=== PATIENT | male | born 1995 | race African-American/Black ===

== ENCOUNTER 2020-02-12 21:48 | Emergency (ER) | payer MEDICAID ==
[~2020-02-12] VITALS: Ht 177.8 cm; Wt 83.9 kg
--- OUTSIDE RECORDS SUMMARY | ~2020-02-12 | XMS | Encounter Summary ---
Demographics + + + | Address | [address] | | | [place] [facility] [address] | + + + | Home Phone | | + + + | Preferred Language | Unknown | + + + | Marital Status | Single | + + + | Mandaeism Affiliation | 1013 | + + + | Race | Unknown | + + + | Ethnic Group | Unknown | + + + Author + + + | Author | [facility] | | | and [place] | + + + | Organization | [facility] | | | and [place] | + + + | Address | Unknown | + + + | Phone | Unavailable | + + + Support + + + + + | Name | Relationship | Address | Phone | + + + + + | Heidy Yao | ECON | [address] | | | | | [place] | | | | | [address] | | + + + + + Care Team Providers + +------+ + | Care Acute Care Physician Name | Role | Phone | + +------+ + | Ugo Schofield MD | PCP | | + +------+ + Reason for Visit Auth/Cert +--------+--------+ + + + + | Status | Reason | Specialty | Diagnoses / | Referred By | Referred To | | | | | Procedures | Contact | Contact | +--------+--------+ + + + + | | | | Diagnoses | | Harri, | | | | | | | Ashok Riley MD | | | | | Gastroesopha | | [address], | | | | | geal reflux | | [address] | | | | | disease, | | [place], | | | | | esophagitis | | [place] [address] | | | | | presence not | | Phone: | | | | | specified | | [phone] | | | | | Gastritis, | | Fax: | | | | | presence of | | [phone] | | | | | bleeding | | | | | | | unspecified, | | | | | | | unspecified | | | | | | | chronicity, | | | | | | | unspecified | | | | | | | gastritis | | | | | | | type | | | | | | | Cannabis | | | | | | | use, | | | | | | | uncomplicate | | | | | | | d | | | | | | | Procedures | | | | | | | [place] | | | | | | | ESOPHAGOGAST | | | | | | | RODUODENOSCO | | | | | | | PY TRANSORAL | | | | | | | DIAGNOSTIC | | | | | | | [place] EGD | | | | | | | TRANSORAL | | | | | | | BIOPSY | | | | | | | SINGLE/MULTI | | | | | | | PLE [place] | | | | | | | ANESTHESIA | | | | | | | UPPER GI | | | | | | | ENDOSCOPIC | | | | | | | PX NOS EGD | | | +--------+--------+ + + + + Encounter Details +--------+---------+ + + + | Date | Type | Department | Care Team | Description | +--------+---------+ + + + | 07/27/ | Surgery | [facility] | Ashok Estrada MD | EGD | | 2019 | | MED CTR [facility] INTRA OP | [address], [place] | | | | | [address] | [address] [place] | | | | | [place] | [address] | | | | | [address] | | | | | | [phone] | | | +--------+---------+ + + + Social History + +-------+ +--------+------+ | Tobacco Use | Types | Packs/Day | Years | Date | | | | | Used | | + +-------+ +--------+------+ | Never Smoker | | | | | + +-------+ +--------+------+ + +---+---+---+ | Smokeless Tobacco: | | | | | Never Used | | | | + +---+---+---+ + + +---------+ + | Alcohol Use | Drinks/Week | oz/Week | Comments | + + +---------+ + | Yes | 5 Cans of beer | 5.0 | | + + +---------+ + + + + | Sex Assigned at | Date Recorded | | | | + + + | Not on file | | + + + documented as of this encounter Last Filed Vital Signs + + + + + | Vital Sign | Reading | Time Taken | Comments | + + + + + | Blood Pressure | 135/92 | 07/27/2019 1:18 PM | | | | | PST | | + + + + + | Pulse | 63 | 07/27/2019 1:18 PM | | | | | PST | | + + + + + | Temperature | 36.6 C (97.9 F) | 07/27/2019 1:18 PM | | | | | PST | | + + + + + | Respiratory Rate | 18 | 07/27/2019 1:18 PM | | | | | PST | | + + + + + | Oxygen Saturation | 100% | 07/27/2019 1:18 PM | | | | | PST | | + + + + + | Inhaled Oxygen | - | - | | | Concentration | | | | + + + + + | Weight | 86.5 kg (190 lb 11.2 | 07/27/2019 1:18 PM | | | | oz) | PST | | + + + + + | Height | 175.3 cm (5' 9") | 07/27/2019 1:18 PM | | | | | PST | | + + + + + | Body Mass Index | 28.16 | 07/27/2019 1:18 PM | | | | | PST | | + + + + + documented in this encounter Discharge Instructions Instructions Priya Mcguire RN - 07/27/2019Formatting of this note might be different f rom the original. Hiatal Hernia The diaphragm is a thin sheet of muscle that runs across the top of the stomach. The small opening in the diaphragm where the esophagus and stomach meet is called the hiatus. When you eat, the muscle around the hiatus relaxes to let food pass from the esophagus into the stom ach. The hiatus tightens to keep food and acid in the stomach. In some people, the hiatus is too large or the muscle around it is weak. Then the top of th e stomach can push upward through the hiatus. This is called a hiatal hernia. A hiatal herni a can let stomach acid flow back up the esophagus. This is called acid reflux. Hiatal hernias are common. The cause of a hiatal hernia is not certain, but some things may make it more likely. These may include obesity, , and vomiting or coughing. Many people with hiatal hernia do not have symptoms. Often the symptoms are like those of G ERD or acid reflux. Theycan include: Burning feeling under the breastbone (heartburn) Other chest discomfort Frequent burping Food coming back up into the throat or mouth Acid taste in the mouth Trouble swallowing food or liquid Nighttime choking, coughing, or wheezing Feeling full after eating only a small amount of food Nausea and vomiting Treatment can reduce symptoms. This includes medicines and lifestyle changes. In severe serafin es, you may need surgery to tighten the hiatus. Home care Medicines help control symptoms, but they can't fix the hernia. Antacids help neutralize the normal acids in your stomach. You may find one works better than another for you. Acid blockers (H2 blockers) decrease acid production. Acid inhibitors (PPIs) decrease acid production in a different way than the blockers. Don't take NSAIDs such as aspirin, ibuprofen, and naproxen. These may worsen symptoms in some people. If you are taking these medicines for another medical problem, talk with your healthcare provider before stopping them. Lifestyle changes are important in treating your symptoms. You can help reduce or relieve y our symptoms if you: Stop smoking and using tobacco. Also if possible, avoid second-hand smoke. Lose excess weight. Excess weight puts pressure on the stomach and esophagus. Symptoms can be worsened by certain foods. Limit or avoid fatty, fried, and spicy foods, as well as coffee, chocolate, mint, and foods with high acid content such as tomatoes and c itrus fruit and juices (orange, grapefruit, lemon). Eat smaller amounts at a time. Don't get overfull. Don't use alcohol, caffeine, or tobacco. They can delay healing and worsen your symptoms . Follow-up care Follow up with your healthcare provider. Regular visits may be needed to check on your heal th. Be sure to take any medicines as prescribed and keep all your appointments. In some case s, you may need surgery to stop symptoms. Your healthcare provider will talk with you about this option if needed. When to seek medical advice Call your healthcare provider right away if any of these occur: Severe pain in your chest or abdomen Can t keep down food or liquid Symptoms get worse Other symptoms as indicated by your healthcare provider Call 911 Call 911 if any of these occur: Trouble breathing or swallowing Worsening chest pain, especially if different from usual Vomiting blood Large amounts of blood in stool Date Last Reviewed: 09/18/201719996580-7778 [employer] [address] [place] [address]. All righ ts reserved. This information is not intended as a substitute for professional medical care. Always follow your healthcare professional's instructions. Tips to Control Acid Reflux To control acid reflux, you ll need to make some basic diet and lifestyle changes. The si mple steps outlined below may be all you ll need to ease discomfort. Watch what you eat Avoid fatty foods and spicy foods. Eat fewer acidic foods, such as citrus and tomato-based foods. These can increase sympto ms. Limit drinking alcohol, caffeine, and fizzy beverages. All increase acid reflux. Try limiting chocolate, peppermint, and spearmint.These can worsen acid reflux in some people. Watch when you eat Avoid lying down rcm4ueute after eating. Do not snack before going to bed. Raise your head Raising your head and upper body by 4 to 6 incheshelps limit reflux when you re lying d own. Put blocks under the head of your bed frame to raise it. Other changes Lose weight, if you need to Don t exercise near bedtime Avoid tight-fitting clothes Limit aspirin and ibuprofen Stop smoking Date Last Reviewed: 02/16/201619994952-3059 [employer] [address] [place] [id number]. All righ ts reserved. This information is not intended as a substitute for professional medical care. Always follow your healthcare professional's instructions. documented in this encounter Medications at Time of Discharge + + + +---------+ + + | Medication | Sig | Dispensed | Refills | Start | End Date | | | | | | Date | | + + + +---------+ + + | omeprazole | One po bid | 180 | 1 | 05/20/20 | | | (PRILOSEC) 20 mg | | capsule | | 19 | | | capsuleIndications: | | | | | | | Gastroesophageal | | | | | | | reflux disease, | | | | | | | esophagitis presence | | | | | | | not specified, | | | | | | | Gastritis, presence | | | | | | | of bleeding | | | | | | | unspecified, | | | | | | | unspecified | | | | | | | chronicity, | | | | | | | unspecified | | | | | | | gastritis type | | | | | | + + + +---------+ + + | ondansetron | Take 1 tablet by | 10 | 0 | 05/03/20 | | | (ZOFRAN ODT) 4 mg | mouth every 8 hours | tablet | | 19 | | | disintegrating | as needed for | | | | | | tablet | Nausea. | | | | | + + + +---------+ + + | raNITIdine | Take 150 mg by mouth | | 0 | | | | (RANITIDINE 150 MAX | 2 times daily. | | | | | | STRENGTH) 150 mg | | | | | | | tablet | | | | | | + + + +---------+ + + documented as of this encounter H&P Notes Ashok Estrada MD - 07/27/2019 1:40 PM PSTThe patient has no questions consent form is si gned we will proceed with upper endoscopyElectronically signed by Ashok Estrada MD at 07/27 1:44 PM Ashok Rojas MD - 07/12/2019 9:11 AM PST PRE-ENDOSCOPY HISTORY AND PRE-SEDATION ASSESSMENT PATIENT NAME: Lit Munoz : 1995 TODAY'S DATE: 07/27/2019 PLANNED PROCEDURE: upper endoscopy PERTINENT HISTORY/INDICATION FOR PROCEDURE: Lit Munoz is a 23 y.o. male who is undergoing upper endoscopy for evaluation of abdominal pain vomiting, history of gastriti s. Patient is referred from the emergency room and primary care provider. Patient reports that he continues to have epigastric pain but is had no further episodes of melena PAST HISTORY: Past Medical History: Diagnosis Date Anxiety PAST SURGICAL HISTORY Past Surgical History: Procedure Laterality Date CYST REMOVAL HOME MEDS: Prior to Admission medications Medication Sig Taking? famotidine (PEPCID) 20 mg tablet Take 1 tablet by mouth Twice daily as needed. omeprazole (PRILOSEC) 20 mg capsule One po bid omeprazole (PRILOSEC) 20 mg capsule Take 1 capsule by mouth every morning (before breakfast ). ondansetron (ZOFRAN ODT) 4 mg disintegrating tablet Take 1 tablet by mouth every 8 hours as needed for Nausea. raNITIdine (RANITIDINE 150 MAX STRENGTH) 150 mg tablet Take 150 mg by mouth 2 times daily. ALLERGIES No Known Allergies ASA CLASSIFICATION: 2 EXAMINATION: Blood pressure (!) 135/92, pulse 63, temperature 36.6 C (97.9 F), resp. rate 18, height 1.753 m (5' 9"), weight 86.5 kg (190 lb 11.2 oz), SpO2 100 %. General: Alert and orientedx3 Throat: Normal Lungs: Clear Heart: Regular rate and rhythm with out significant murmur Abdomen: flat, normal bowel sounds. Soft, nontender 1. Available medical records have been reviewed. [facility] 05/20/2019 emergency r oom department 05/08/2019 2. Medication list reviewed. IMPRESSION: epigastric pain and melena rule out peptic ulcer disease as dryness etc. Pat ient appropriate for procedure. PLAN: 1. Proceed with procedure as stated above with propofol sedation/analgesia due to THC use, alcohol use and anxiety. 2. Procedure, indications, risks and alternatives explained to patient/family and they agre ed to proceed and consent was signed. 3. Patient will be reevaluated immediately (1-2 minutes) before sedation administration and approved for the plan as stated above. Electronically Signed by: Ashok Estrada MD 07/27/2019 [facility] Portions of this chart may have been created with [employer] voice recognition software. Occasi onal wrong-word or sound-alike substitutions may have occurred due to the inherent moyer itations of voice recognition software. Please read the chart carefully and recognize, using context, where these substitutions have occurred documented in this encounter Miscellaneous Notes Op Note - Ashok Estrada MD - 07/27/2019 2:07 PM PSTUpper endoscopy was remarkable for a small sliding hiatal hernia with an irregular Z line at 39 cm. Gastric cavity appeared norm al H. pylori biopsy was obtained. There appeared to be duodenum mucosal atrophy and as such duodenal biopsies were obtained. Distal esophageal biopsies were also obtained. Patient w ill continue on his current therapy pending biopsy results -C Instructions Provation - Ashok Estrada MD - 019 1:31 PM PSTDischarge Instructions for Upper Endoscopy Patient: Lit Munoz : 1995 Acct: [id number] Exam Date: Saturday, July 27, 2019 Doctor: Ashok Estrada MD The chances of difficulty following this procedure are minimal. The following instructions will assist you in your recovery. 1. Do Not eat or drink anything for 1 hour. Try sips of water first. If tolerated, resume your regular diet or one recommended by your physician. 2. Do not drive, operate machinery, make critical decisions, or do activities that require coordination or balance for 24 hours. 3. You may experience a sore throat for 24 - 48 hours. You may use throat lozenges or gargle with warm salt water to relieve the discomfort. 4. Because air was put into your stomach druing the procedure, you may experience some belching. 5. Do not use any medication containing aspirin for 10 days, unless otherwise directed by your physician. 6. Sometimes the medications given to you druing the exam can aggravate the veins. The chemical irritation can cause inflammation or pain along the arm with redness, swelling and warmth. This does not mean there is an infection. You can treat the affected area by applying warm, wet compresses (towels) 4 times a day for 20 minutes at a time until inflammation is resolved 7. Report to your doctor: Chills and/or fever over 100 Persistent vomiting or vomiting with blood/nasal regurgitation Severe abdominal pain, other than gas cramps Severe chest pain Black, tarry stools You may reach your physician at Work: . If unable to reach your physician, call [facility] Emergency Department at Ext. [phone] Your doctor recommends these additional instructions: You have a contact number available for emergencies. The signs and symptoms of potential delayed complications were discussed with you. You may return to normal activities tomorrow. Written discharge instructions were provided to you. You are being discharged to home. Resume your previous diet today. Continue your present medications. We are waiting for your pathology results. Return to your primary care physician as previously scheduled. Telephone your GI clinic if symptoms are present. Telephone your GI clinic for pathology results in one week. These instructions have been explained to the patient and/or escort. A copy has been given to the patient/escort. Nurse Signature Patient Signature Escort Signature Date Ashok Estrada MD 07/27/2019 2:12:49 PM This report has been signed electronically.Electronically signed by Ashok Estrada MD at 2:13 PM PSTdocumented in this encounter Plan of Treatment Not on filedocumented as of this encounter Procedures + +--------+ + + + | Procedure Name | Priori | Date/Time | Associated Diagnosis | Comments | | | ty | | | | + +--------+ + + + | HELICOBACTER PYLORI | Routin | 07/27/2019 | | Results for this | | BIOPSY | e | 1:51 PM | | procedure are in the | | | | PST | | results section. | + +--------+ + + + | EGD | | 07/27/2019 | Gastroesophageal | | | | | 1:43 PM | reflux disease, | | | | | PST | esophagitis presence | | | | | | not specified | | | | | | Gastritis, presence | | | | | | of bleeding | | | | | | unspecified, | | | | | | unspecified | | | | | | chronicity, | | | | | | unspecified | | | | | | gastritis type | | | | | | Cannabis use, | | | | | | uncomplicated | | + +--------+ + + + | *TERMED* [place] UPPER GI | Routin | 07/27/2019 | | Results for this | | ENDOSCOPY,EXAM | e | 1:31 PM | | procedure are in the | | | | PST | | results section. | + +--------+ + + + | SURGICAL PATHOLOGY | Routin | 07/27/2019 | | Results for this | | EXAM | e | 12:00 AM | | procedure are in the | | | | PST | | results section. | + +--------+ + + + documented in this encounter Results Helicobactor pylori Biopsy (07/27/2019 1:51 PM PST) + + + + + + | Component | Value | Ref Range | Performed | Pathologist | | | | | At | Signature | + + + + + + | Helicobacte | Negative | Negative | [facility] | | | r pylori Ag | | | [facility] | [facility] - | | | | | | LABORATORY | | + + + + + + + + | Specimen | + + | Tissue - Specimen | | from stomach | | (specimen) | + + + + + + + | Performing | Address | City/State/Zipcode | Phone Number | | Organization | | | | + + + + + | [facility] | [address] | [place] | [phone] | | [facility] | | [address] | | | - LABORATORY | | | | + + + + + EGD (07/27/2019 1:31 PM PST) + + | Specimen | + + | | + + + + + | Narrative | Performed At | + + + | [facility] | [facility] | | [facility]ologyPatient Name: Lit Munoz | YECENIA | | RichardProcedure Date: 07/27/2019 1:31 PMMRN: [id number] | | | Number: [id number] of : 1995Note Status: | | | FinalizedAttending MD: Asohk Estrada , [facility]rocedure Type: | | | Upper GI endoscopyIndications: Epigastric | | | abdominal pain, MelenaReferring MD: Ugo Vu | | | MD Chandu (Referring MD)Medicines: Propofol per | | | AnesthesiaComplications: No immediate complications. | | | Estimated blood loss: | | | Minimal.Procedure: Pre-Anesthesia Assessment: - Prior to | | | the procedure, a History and Physical was performed, and | | | patient medications, allergies and sensitivities were reviewed. The | | | patient's tolerance of previous anesthesia was reviewed. - | | | Prior to the procedure, a History and Physical was performed, and | | | patient medications and allergies were reviewed. The patient is | | | competent. The risks and benefits of the procedure and the | | | sedation options and risks were discussed with the patient. All | | | questions were answered and informed consent was obtained. | | | Patient identification and proposed procedure were verified by | | | the physician, the nurse, the anesthesiologist and the | | | data communications technician in the endoscopy suite. Mental Status Examination: | | | anxious. Airway Examination: normal oropharyngeal airway and | | | neck mobility and Mallampati Class II (the uvula but not | | | tonsillar pillars visualized). Respiratory Examination: clear to | | | auscultation. CV Examination: normal. Prophylactic Antibiotics: The | | | patient does not require prophylactic antibiotics. Prior | | | Anticoagulants: The patient has taken no previous anticoagulant | | | or antiplatelet agents. ASA Grade Assessment: II - A patient | | | with mild systemic disease. After reviewing the risks and | | | benefits, the patient was deemed in satisfactory condition to | | | undergo the procedure. The anesthesia plan was to use monitored | | | anesthesia care (MAC). Immediately prior to administration of | | | medications, the patient was re-assessed for adequacy to receive | | | sedatives. The heart rate, respiratory rate, oxygen saturations, | | | blood pressure, adequacy of pulmonary ventilation, and response | | | to care were monitored throughout the procedure. The physical | | | status of the patient was re-assessed after the procedure. | | | - After reviewing the risks and benefits, the patient was deemed in | | | satisfactory condition to undergo the procedure. - Using | | | IV propofol under the supervision of an anesthesiologist was | | | determined to be medically necessary for this procedure based on | | | patient's dependence on opiates, sedatives or hypnotics and | | | patient's anxiety. After obtaining informed consent, the | | | endoscope was passed under direct vision. Throughout the | | | procedure, the patient's blood pressure, pulse, and oxygen | | | saturations were monitored continuously. The Endoscope was | | | introduced through the mouth, and advanced to the third part of | | | duodenum. The upper GI endoscopy was accomplished without difficulty. | | | The patient tolerated the procedure well.Findings: The | | | cricopharyngeus, upper third of the esophagus, middle third of the | | | esophagus and lower third of the esophagus were normal. The | | | Z-line was irregular and was found 38 cm from the incisors. Imaging | | | was performed using the [employer]elligent [employer]o Endoscopy | | | (FICE) system to visualize the esophageal mucosa. Biopsies were | | | taken with a cold forceps for histology. Verification of | | | patient identification for the specimen was done. Estimated | | | blood loss was minimal. A 4 cm sliding hiatal hernia was found. | | | Localized mildly erythematous mucosa without bleeding was found | | | in the gastric antrum. Biopsies were taken with a cold forceps | | | for Helicobacter pylori testing using CLOtest. Verification of | | | patient identification for the specimen was done. Estimated | | | blood loss was minimal. Diffuse atrophic mucosa was found in the | | | area of the papilla and in the third portion of the duodenum. | | | The duodenal bulb and first portion of the duodenum were normal. | | | Biopsies for histology were taken with a cold forceps for | | | evaluation of celiac disease. Verification of patient | | | identification for the specimen was done. Estimated blood loss | | | was minimal. The retroflexed view confirmed previous | | | findings,Impression: - Normal cricopharyngeus, upper third of | | | esophagus, middle third of esophagus and lower third of | | | esophagus. - Z-line irregular, 38 cm from the incisors. | | | Biopsied. - 4 cm sliding hiatal hernia. - Erythematous | | | mucosa in the antrum. Biopsied. - Duodenal mucosal atrophy. | | | - Normal duodenal bulb and first portion of the duodenum. Biopsied. | | | - The retroflexed view confirmed previous | | | findings,Recommendation: - Patient has a contact number | | | available for emergencies. The signs and symptoms of potential | | | delayed complications were discussed with the patient. Return | | | to normal activities tomorrow. Written discharge instructions | | | were provided to the patient. - Discharge patient to home | | | (ambulatory). - Resume previous diet today. - Continue | | | present medications. - Await pathology results. - Return | | | to primary care physician as previously scheduled. - Telephone | | | GI clinic if symptomatic. - Telephone GI clinic for pathology | | | results in 1 week.Ashok Estrada MD07/27/2019 2:12:49 PMThis report | | | has been signed electronically.Note Initiated On: 07/27/2019 1:31 | | | PMNumber of Addenda: 0 [facility] | | | - Discharge patient to home (ambulatory). | | | - Resume previous diet today. | | | - Continue present medications. | | | - Await pathology results. | | | - Return to primary care physician as previously scheduled. | | | - Telephone GI clinic if symptomatic. | | | - Telephone GI clinic for pathology results in 1 week. | | |Ahsok Estrada MD | | |07/27/2019 2:12:49 PM | | |This report has been signed electronically. | | |Note Initiated On: 07/27/2019 1:31 PM | | |Number of Addenda: 0 | | | [facility] [facility] | | + + + + +---------+ + + | Performing | Address | City[facility] | Phone Number | | Organization | | | | + +---------+ + + | [facility] | | | | + +---------+ + + Surgical Pathology Exam (07/27/2019 12:00 AM PST) + + | Specimen | + + | | + + + + + | Narrative | Performed At | + + + | SPECIMEN(S): A DUODENAL BIOPSY SPECIMEN(S): B DISTAL ESOPHAGUS | [facility] | | SPECIMEN SOURCE: A. DUODENAL BIOPSY B. DISTAL ESOPHAGUS CLINICAL | [facility] | | HISTORY: K21.9 (gastroesophageal reflux disease, esophagitis | | | presence not specified), K29.70 (gastritis, unspecified), F12.90 | | | (Cannabis use, unspecified, uncomplicated) MICROSCOPIC | | | DESCRIPTION: Histologic sections of all submitted blocks are examined | | | by light microscopy. These findings, together with the gross | | | examination, support the pathologic diagnosis. FINAL PATHOLOGIC | | | DIAGNOSIS: A. Duodenal biopsy: - Benign duodenal mucosa, negative | | | for specific diagnostic abnormality. B. Distal esophagus, biopsy: | | | - Squamocolumnar junction with chronic inflammation and reactive | | | features. - Negative for specialized intestinal metaplasia. - | | | Negative for dysplasia. - Fragment of benign duodenal mucosa. | | | (see comment) COMMENT: B. A small fragment of benign duodenal | | | mucosa is identified which may represent a contaminant from specimen | | | A. VR:[facility]:C2NR GROSS DESCRIPTION: Two specimens are received | | | in two containers, labeled "DP." A. The specimen, labeled "DP, | | | duodenal biopsy," is received in formalin and consists of seven, | | | 0.2-0.3 cm larsen-brown tissue fragments. Specimen is entirely submitted | | | in cassette (A1). B. The specimen, labeled "DP, distal | | | esophageal biopsy," is received in formalin and consists of six, | | | 0.1-0.2 cm larsen-white tissue fragments. Specimen is entirely submitted | | | in cassette (B1). AM (under the direct supervision of a pathologist) | | | The Gross Description was prepared using a voice recognition | | | system. The report was reviewed for accuracy; however, sound-alike | | | word errors, addition and/or deletions may occur. If there is any | | | question about this report, please contact Client Services. | | | PERFORMING LABORATORY: The technical component was performed by | | | [facility] [address] (Medical | | | Director: Maria Morrissey MD; CLIA# [id number]). Professional | | | [facility] | | | [address] | | | [address] (Golf Course Ranger: Micky Hollis M.D.). Diagnostician: | | | Micky Hollis MD Pathologist Electronically Signed 07/28/2019 | | | | | + + + + +---------+ + + | Performing | Address | City[facility]State[facility] | Phone Number | | Organization | | | | + +---------+ + + | [facility] | | | | | [facility] | | | | + +---------+ + + documented in this encounter Visit Diagnoses + + | Diagnosis | + + | Gastroesophageal reflux disease, esophagitis presence not specified | + + | Gastritis, presence of bleeding unspecified, unspecified chronicity, unspecified | | gastritis type | + + | Cannabis use, uncomplicated Cannabis abuse, unspecified | + + documented in this encounter Admitting Diagnoses + + | Diagnosis | + + | Gastroesophageal reflux disease, esophagitis presence not specified | + + | Gastritis, presence of bleeding unspecified, unspecified chronicity, unspecified | | gastritis type | + + | Cannabis use, uncomplicated Cannabis abuse, unspecified | + + documented in this encounter Administered Medications + +--------+---------+------+------+------+ | Medication Order | MAR | Action | Dose | Rate | Site | | | Action | Date | | | | + +--------+---------+------+------+------+ + +---+ | albuterol 2.5 mg/3 mL nebulizer | | | solution 2.5 mg 2.5 mg, | | | Nebulization, ONCE PRN, Wheezing, | | | Starting 07/27/19 at 1318, | | | For 1 dose, RT will administer., | | | Pre-op | | + +---+ | | | + +---+ | albuterol 2.5 mg/3 mL nebulizer | | | solution 2.5 mg 2.5 mg, | | | Nebulization, ONCE PRN, Wheezing, | | | Starting e 07/27/19 at 1406, | | | For 1 dose, Notify anesthesia if | | | patient is wheezing and does not | | | have a history of asthma or COPD | | | or current smoking., | | | Recovery/Phase I | | + +---+ | | | + +---+ | albuterol-ipratropium 2.5-0.5 | | | mg/3 mL nebulizer solution 3 mL | | | 3 mL, Nebulization, ONCE PRN, | | | Wheezing, Starting 07/27/19 | | | at 1318, For 1 dose, Pre-op | | + +---+ | | | + +---+ | albuterol-ipratropium 2.5-0.5 | | | mg/3 mL nebulizer solution 3 mL | | | 3 mL, Nebulization, ONCE PRN, | | | Wheezing, Shortness of Breath, | | | Starting e 07/27/19 at 1406, | | | For 1 dose, Recovery/Phase I | | + +---+ | | | + +---+ | dextrose 50% injection 12.5-25 | | | g 12.5-25 g, Intravenous, EVERY | | | 15 MIN PRN, Low Blood Sugar, Give | | | 12.5g (25 mL) IV if blood | | | glucose 50-69 mg/dL. Give 25g | | | (50 mL) IV if blood glucose < 50, | | | Starting 07/27/19 at 1318, | | | Repeat in 15 min if blood glucose | | | remains < 70 mg/dL. Repeat | | | blood glucose in 30 min once | | | blood glucose > 70., Pre-op | | + +---+ | | | + +---+ | dextrose 50% injection 12.5-25 | | | g 12.5-25 g, Intravenous, EVERY | | | 15 MIN PRN, Low Blood Sugar, For | | | hypoglycemia. Give 12.5g (25ml) | | | IV if blood glucose 50-69 | | | mg/dL. Give 25g (50ml) IV if | | | blood glucose < 50, Starting Tue | | | 07/27/19 at 1406, Give over 2 | | | min. Repeat in 15 min if blood | | | glucose remains < 70 mg/dL. | | | Repeat blood glucose in 30 min | | | once blood glucose > 70., | | | Recovery/Phase I | | + +---+ | | | + +---+ | ePHEDrine (AKOVAZ) 50 mg/mL | | | injection 5 mg 5 mg, | | | Intravenous, EVERY 5 MIN PRN, if | | | SBP <90., Starting 07/27/19 | | | at 1406, Hold if HR > 100. | | | Maximum total dose 20mg., | | | Recovery/Phase I | | + +---+ | | | + +---+ | fentaNYL (PF) injection 25-50 | | | mcg 25-50 mcg, Intravenous, | | | EVERY 5 MIN PRN, Pain, Initial | | | postop urgent pain or escalating | | | pain, Starting 07/27/19 at | | | 1406, For 4 doses, Every 5 | | | minutes PRN for initial postop | | | urgent pain or escalating pain up | | | to 2 doses maximum. If patient | | | meets opioid tolerant definition, | | | can give up to 4 doses maximum. | | | First dose must be lowest dose. | | | Use Pasero Sedation Scale. | | | [Opioid tolerant = One week or | | | longer, pzwhqy-egj-qinvv use of | | | at least the following DAILY | | | dose: 60mg oral morphine, 60mg | | | oral hydrocodone, 30mg oral | | | oxycodone, 8mg oral | | | hydromorphone, fentanyl patch | | | 25mcg/hr, or equivalent dose of | | | another opioid], Recovery/Phase I | | + +---+ | | | + +---+ + +---------+ +--------+-------+---+ | lactated ringers (LR) infusion | New Bag | 07/27/20 | 1,000 | 100 | | | at 10-100 mL/hr, Intravenous, | | 19 1:36 | mLs | mL/hr | | | CONTINUOUS, Starting Fri07/27/19 | | PM PST | | | | | at 1345, TKO., Pre-op | | | | | | + +---------+ +--------+-------+---+ + +---+ | | | + +---+ | metoclopramide (REGLAN) 5 mg/mL | | | injection 10 mg 10 mg, | | | Intravenous, ONCE PRN, Nausea, | | | Vomiting, Starting Fri07/27/19 | | | at 1406, For 1 dose, Protect from | | | light., Recovery/Phase I | | + +---+ | | | + +---+ | ondansetron (ZOFRAN) injection | | | 4 mg 4 mg, Oral, EVERY 4 HOURS | | | PRN, Nausea, Vomiting, Starting | | | Fri07/27/19 at 1406, | | | Recovery/Phase I | | + +---+ | | | + +---+ | ondansetron (ZOFRAN) injection | | | 4 mg 4 mg, Intravenous, ONCE | | | PRN, Nausea, Starting Tue | | | 07/27/19 at 1406, For 1 dose, | | | Recovery/Phase I | | + +---+ | | | + +---+ | promethazine (PHENERGAN) (IV | | | ONLY) injection 6.25 mg 6.25 mg, | | | Intravenous, EVERY 15 MIN PRN, | | | Nausea, Vomiting, Starting Tue | | | 07/27/19 at 1406, For 4 doses, | | | TAKE PRECAUTIONS WHEN | | | ADMINISTERING Dilute to 10-20mL | | | with NS. Give over 2-3 minutes | | | into large vein. Use ondansetron | | | first if both are ordered., | | | Recovery/Phase I | | + +---+ | | | + +---+ documented in this encounter
--- OUTSIDE RECORDS SUMMARY | ~2020-02-12 | XMS | Encounter Summary ---
Demographics + + + | Address | [address] | | | [place] [facility] [address] | + + + | Home Phone | | + + + | Preferred Language | Unknown | + + + | Marital Status | Single | + + + | Anabaptist Affiliation | 1013 | + + + | Race | Unknown | + + + | Ethnic Group | Unknown | + + + Author + + + | Author | [facility] | | | and [place] | + + + | Organization | [facility] | | | and [...] [place] | | | | | [address] | | + + + + + Care Team Providers + +------+ + | Care Family Literacy Coordinator Name | Role | Phone | + +------+ + | No, Physician | PCP | Unavailable | + +------+ + Reason for Visit + +--------+ + | Reason | Onset | Comments | | | Date | | + +--------+ + | Follow-up | 04/05/ | | | | 2013 | | + +--------+ + Encounter Details +--------+ + + + + | Date | Type | Department | Care Team | Description | +--------+ + + + + | 04/05/ | Telephone | [facility] | Radu Schwartz, | Follow-up | | 2013 | | CARE [address] | [address] | | | | | [place] | [facility] [place] | | | | | [address] | [address] | | | | | [phone] | | | +--------+ + + + + Social History + +-------+ [...] Comments | + + +---------+ + | Not Asked | | | | + + +---------+ + + + + | Sex Assigned at | Date Recorded | | | | + + + | Not on file | | + + + documented as of this encounter Miscellaneous Notes Telephone Encounter - Aida Dash RN - 04/05/2014 11:43 AM PDTCalled patient per [facility] Follow up Guidelines. Asked patient how they are doing and if they have any questi ons or concerns. Patient expressed understanding and thanked me for the call. States that his hand is still swollen and painful. States that [facility] a nd they did Xray and labs and these were normal. He states that he is taking the Augmentin. I advised that if his hand is still not any better in 2 more days to come back in for a re -check. documented in this encounter Plan of Treatment Not on filedocumented as of this encounter Visit Diagnoses Not on filedocumented in this encounter"
--- OUTSIDE RECORDS SUMMARY | ~2020-02-12 | XMS | Encounter Summary ---
Demographics + + + | Address | [address] | | | [place] [facility] [address] | + + + | Home Phone | | + + + | Preferred Language | Unknown | + + + | Marital Status | Single | + + + | Spiritism Affiliation | 1013 | + + + | Race | Unknown | + + + | Ethnic Group | Unknown | + + + Author + + + | Author | [facility] | | | and [place] | + + + | Organization | [facility] | | | and [place] [...] [place], [place] | | | | | [address] | | + + + + + Care Team Providers + +------+ + | Care Ivory Polisher Name | Role | Phone | + +------+ + | No, Physician | PCP | Unavailable | + +------+ + Encounter Details +--------+ + + + + | Date | Type | Department | Care Team | Description | +--------+ + + + + | 08// | Hospital | [facility] | Lana, Radu Armstrong, | | | 2013 | Encounter | [facility] | [address] | | | | | [address] [place] | [place] | | | | | [place] | [address] | | | | | [address] | | | | | | [phone] | | | +--------+ + + + [...] + | MISCELLANEOUS LAB | | | [phone] | + +---------+ + + | MISCELANIOUS LAB | | | [phone] | + +---------+ + + documented in this encounter Visit Diagnoses Not on filedocumented in this encounter"
--- OUTSIDE RECORDS SUMMARY | ~2020-02-12 | XMS | Encounter Summary ---
Demographics + + + | Address | [address] | | | [place] [facility] [address] | + + + | Home Phone | | + + + | Preferred Language | Unknown | + + + | Marital Status | Single | + + + | Confucianism Affiliation | 1013 | + + + | Race | Unknown | + + + | Ethnic Group | Unknown | + + + Author + + + | Author | [facility] | | | and [place] | + + + | Organization | [facility] | | | and [place] [...] [place] | | | | | [address] | | + + + + + Care Team Providers + +------+ + | Care Health And Wellness Instructor Name | Role | Phone | + [...] | | Gastroesopha | | [address], | | | | | geal reflux | | [address] | | | | | disease, | | [place], | | | | | esophagitis | | [place] [address] | | | | | presence not | | Phone: | | | | | specified | | [phone] | | | | | Gastritis, | | Fax: | | | | | presence of | | [phone] | | | | | bleeding | [...] | | | | | | | [place] | | | | | | | ESOPHAGOGAST | | | | | | | RODUODENOSCO | | | | | | | PY TRANSORAL | | | | | | | DIAGNOSTIC | | | | | | | [place] EGD | | | | | | | TRANSORAL | | | | | | | BIOPSY | | | | | | | SINGLE/MULTI | | | | | | | PLE [place] | | | | | | | [...] + + + + | 07/27/ | Hospital | [facility] | Ashok Estrada MD | Gastroesophageal | | 2019 | Encounter | MED [facility] | [address], [place] | reflux disease, | | | | [address] | [address] [place] | esophagitis presence | | | | [place], [place] | [address] | not specified; | | | | [address] | | Gastritis, presence | | | | [phone] | | of bleeding | | | | | | unspecified, | | | | | | unspecified | | | | | | chronicity, | | | | | | unspecified | | | | | | gastritis type; | | | | | | Cannabis use, | | | | | | uncomplicated | +--------+ + + + + Social [...] + + + | Blood Pressure | 122/81 | 07/27/2019 2:30 PM | | | | | PST | | + + + + + | Pulse | 57 | 07/27/2019 2:30 PM | | | | | PST | | + + + + + | Temperature | 36.6 C (97.9 F) | 07/27/2019 1:18 PM | | | | | PST | | + + + + + | Respiratory Rate | 15 | 07/27/2019 2:30 PM | | | | | PST | | + + + + + | Oxygen Saturation | 100% | 07/27/2019 2:30 PM | | | | | PST [...] of blood in stool Date Last Reviewed: 09/18/201719990571-3914 [employer]. [address] [place] [address], [place] [address]. All righ ts reserved. This information is [...] Watch when you eat Avoid lying down bal7wvyox after eating. Do not snack before going [...] and ibuprofen Stop smoking Date Last Reviewed: 02/16/201619990674-3368 [employer]. [address] [place] [address], [place] [address]. All righ ts reserved. This information is [...] Ashok Estrada MD at 07/27 1:44 PM PSTHarri, Ashok Riley MD - 07/12/2019 9:11 AM PST PRE-ENDOSCOPY [...] 1. Available medical records have been reviewed. [facility] 05/20/2019 emergency r oom department [...] Electronically Signed by: Ashok Estrada MD 07/27/2019 [facility] Portions of this chart may have been created with [employer] voice recognition software. Occasi onal wrong-word or [...] Endoscopy Patient: Lit Munoz : 1995 Acct: [id number] Exam Date: Saturday, July 27, 2019 Doctor: [...] If unable to reach your physician, call [facility] Emergency Department at [address]. [address] Your doctor [...] + +--------+ + + + | *TERMED* [place] UPPER GI | Routin | 07/27/2019 | [...] ST. | [address] | [place], [place] | [phone] | | [facility] | | [address] | | | - LABORATORY | | | | + + + + + EGD (07/27/2019 1:31 PM PST) + + | Specimen | + + | | + + + + + | Narrative | Performed At | + + + | [facility] [place] | [facility] | | [facility] Name: Lit Munoz | YECENIA | | RichardProcedure Date: 07/27/2019 1:31 PMMRN: [id number] | | | Number: [id number] of : 1995Note Status: | | | FinalizedAttending MD: Ashok Estrada , MDProcedure Type: | | | Upper GI endoscopyIndications: [...] the anesthesiologist and the | | | prosthetics technician in the endoscopy suite. Mental Status [...] | | | was performed using the [employer] Chromo Endoscopy | | | (FICE) [...] | | | PMNumber of Addenda: 0 [facility] | | | - Discharge patient to [...] |Number of Addenda: 0 | | | [facility] | | + + + + +---------+ [...] contaminant from specimen | | | A. JVR:[facility]:C2NR GROSS DESCRIPTION: Two specimens are received | [...] component was performed by | | | [facility] [address] (Medical | | | Director: Maria Morrissey MD; IA# [id number]). Professional | | | interpretation was performed by [facility] | | | [address] | | | [address] (Balance Bridge Assembler: Micky Hollis M.D.). Diagnostician: | | | [...] uncomplicated Cannabis abuse, unspecified | + + | Marijuana use Cannabis abuse, unspecified | + + documented [...] Wheezing, | | | Starting 07/27/19 at 1406, | | | For [...] ONCE PRN, | | | Wheezing, Starting e 07/27/19 | | | at 1318, For 1 dose, Pre-op | | + +---+ | | | + +---+ | albuterol-ipratropium 2.5-0.5 | | | mg/3 mL nebulizer solution 3 mL | | | 3 mL, Nebulization, ONCE PRN, | | | Wheezing, Shortness of Breath, | | | Starting 07/27/19 at 1406, | | | For [...] One week or | | | longer, zeymsh-eir-lbiba use of | | | at least [...] PRN, Nausea, | | | Vomiting, Starting 07/27/19 | | | at 1406, For 1 dose, Protect from | | | light., Recovery/Phase I | | + +---+ | | | + +---+ | ondansetron (ZOFRAN) injection | | | 4 mg 4 mg, Oral, EVERY 4 HOURS | | | PRN, Nausea, Vomiting, Starting | | | 07/27/19 at 1406, | | | Recovery/Phase I [...]
--- OUTSIDE RECORDS SUMMARY | ~2020-02-12 | XMS | Encounter Summary ---
Demographics + + + | Address | [address] | | | [facility] [address] | + + + | Home Phone | | + + + | Preferred Language | Unknown | + + + | Marital Status | Single | + + + | Shinto Affiliation | 1013 | + + + | Race | Unknown | + + + | Ethnic Group | Unknown | + + + Author + + + | Author | [facility] | | | and [place] | + + + | Organization | [facility] | | | and [place] | [...] [place], [place] | | | | | [address] | | + + + + + Care Team Providers + +------+ + | Care Labor Relations Consultant Name | Role | Phone | + +------+ + | No, Physician | PCP | Unavailable | + +------+ + Reason for Visit + + + | Reason | Comments | + + + | Abdominal Pain | | + + + | Emesis | | + + + Encounter Details +--------+ + + + + | Date | Type | Department | Care Team | Description | +--------+ + + + + | 05/03/ | Emergency | [facility] | Franklyn Arroyo | Epigastric pain | | 2019 | | [facility] | DO [address] | (Primary Dx) | | | | CENTER [address] | [facility] | | | | | [place] | [place] [address] | | | | | [address] | [phone] | | | | | [phone] | | | +--------+ + + + [...] + + +---------+ + | Yes | 60 Cans of beer | 60.0 | | + + +---------+ + + [...] + + + | Blood Pressure | 128/77 | 05/03/2019 10:30 PM | | | | | PDT | | + + + + + | Pulse | 82 | 05/03/2019 10:30 PM | | | | | PDT | | + + + + + | Temperature | 37.3 C (99.1 F) | 05/03/2019 7:58 PM | | | | | PDT | | + + + + + | Respiratory Rate | 16 | 05/03/2019 10:30 PM | | | | | PDT | | + + + + + | Oxygen Saturation | 99% | 05/03/2019 10:30 PM | | | | | PDT | | + + + + + | Inhaled Oxygen | - | - | | | Concentration | | | | + + + + + | Weight | 88.5 kg (195 lb) | 05/03/2019 7:58 PM | | | | | PDT | | + + + + + | Height | 175.3 cm (5' 9") | 05/03/2019 7:58 PM | | | | | PDT | | + + + + + | Body Mass Index | 28.8 | 05/03/2019 7:58 PM | | | | | PDT | | + + + + + documented in this encounter Discharge Instructions AttachmentsThe following attachments cannot be sent through Care Everywhere.Gastritis (Adul t) (Bermudian)documented in this encounter Medications at Time of Discharge + + + +---------+ + + | Medication | Sig | Dispensed | Refills | Start | End Date | | | | | | Date | | + + + +---------+ + + | ondansetron | Take 1 tablet by | 10 | 0 | /16/ | | | (ZOFRAN ODT) 4 mg [...] + + + +---------+ + + | famotidine | Take 1 tablet by | 60 | 0 | 05/03/20 | | | (PEPCID) 20 mg | mouth Twice daily | tablet | | 19 | 9 | | tablet | as needed. | | | | | + + + +---------+ + + | omeprazole | Take 1 capsule by | 30 | 0 | 05/03/20 | | | (PRILOSEC) 20 mg | mouth every morning | capsule | | 19 | 9 | | capsule | (before breakfast). | | | | | + + + +---------+ + + documented as of this encounter ED Notes Franklyn Arroyo, - 05/08/2019 4:46 PM PDTFormatting of this note might be differ ent from the original. [facility] Lit Munoz Emergency Department Encounter Note [address] [place] [id number] PCP:No Physician on file [phone] History ED Triage Notes, ED Triage Notes Elizabeth Jennings RN 05/03/2019 20:00 Patient presenting to ED with chief complaint of vomiting and abdominal pain since 0700 yes terday morning. Patient reports he has been unable to keep down food or fluids since that ti me. Patient has a history of gastritis. Patient reports seeing some blood in his vomit, conc erned about ulcers. CC: Abdominal Pain and Emesis HPI: Lit Munoz is a 23 y.o. male who presents to the ED for evaluation of abd ominal pain vomiting since yesterday. He has been unable to keep anything down and reports he is a history of gastritis he is concerned that it could be back. He denies any fevers, c hills or lightheadedness. PMH: No past medical history on file. PSH: No past surgical history on file. Medications: [employer] Home Medications Medication Sig raNITIdine (RANITIDINE 150 MAX STRENGTH) 150 mg tablet Take 150 mg by mouth 2 times vianca ly. Allergies: He has No Known Allergies.. Social History: He reports that he has never smoked. He has never used smokeless tobacco. He reports that he drinks about 36.0 oz of alcohol per week. He reports that he has current or past drug history. Drug: Marijuana. Frequency: 7.00 times per week.. Review of Systems Constitutional: Negative for chills and fever. HENT: Negative for congestion. Eyes: Negative for visual disturbance. Respiratory: Negative for chest tightness and shortness of breath. Cardiovascular: Negative for chest pain and leg swelling. Gastrointestinal: Positive for abdominal pain, nausea and vomiting. Negative for diarrhea. Genitourinary: Negative for dysuria and hematuria. Musculoskeletal: Negative for arthralgias and myalgias. Skin: Negative for rash. Neurological: Negative for weakness and headaches. Psychiatric/Behavioral: Negative for behavioral problems. Physical Exam Vital Signs: Temp: 37.3 C (99.1 F) Pulse: 70 Resp: 16 BP: (!) 143/92 SpO2: 97 % Physical Exam Constitutional: He is oriented to person, place, and time. He appears well-developed and we ll-nourished. No distress. HENT: Head: Normocephalic and atraumatic. Nose: Nose normal. Eyes: Pupils are equal, round, and reactive to light. EOM are normal. Neck: Normal range of motion. Neck supple. Cardiovascular: Normal rate, regular rhythm and intact distal pulses. No murmur heard. Pulmonary/Chest: Effort normal and breath sounds normal. No respiratory distress. Abdominal: Soft. He exhibits no distension. There is tenderness in the epigastric area. The re is no rebound. Musculoskeletal: Normal range of motion. He exhibits no edema or deformity. Neurological: He is alert and oriented to person, place, and time. Skin: Skin is warm and dry. No rash noted. Psychiatric: His behavior is normal. Nursing note and vitals reviewed. ED Course and Medical Decision Making Lit Munoz presented to the Emergency Department for evaluation, and he was tr iaged to room HALL01. I reviewed the nursing notes, and he was evaluated by me. IMPRESSION 1. Epigastric pain Patient's work-up is unremarkable. He was treated with IV fluids, antiemetics, and Pepcid. Patient symptoms have improved considerably. He will be discharged on an H2 justin and e ncouraged to follow-up with his primary care doctor. He expressed understanding condition i s agreed with plan. Discharged in stable condition. Coding Franklyn Arroyo DO 05/08/19 1648 ored, Elizabeth Riley RN - 05/03/2019 7:59 PM PDTPatient presenting to ED with chief complaint of vomiting and abdominal pain since 0700 yesterday morning. Patient reports he has been unable to keep down food or fluids since that time. Patient has a history of gastritis. Patient reports seeing some blood in his vomit, concerned about ulcers.Electronically signed by HARIS Jones 05/03/2019 8:00 PM PDTdocumented in this encounter Plan of Treatment Not on filedocumented as of this encounter Procedures + +--------+ + + + | Procedure Name | Priori | Date/Time | Associated Diagnosis | Comments | | | ty | | | | + +--------+ + + + | XR CHEST PA AND | STAT | 05/03/2019 | | Results for this | | LATERAL | | 10:17 PM | | procedure are in the | | | | PDT | | results section. | + +--------+ + + + | EXTRA LAVENDER TOP | Routin | 05/03/2019 | | Results for this | | TUBE | e | 8:51 PM | | procedure are in the | | | | PDT | | results section. | + +--------+ + + + | EXTRA GREEN TOP TUBE | Routin | 05/03/2019 | | Results for this | | | e | 8:51 PM | | procedure are in the | | | | PDT | | results section. | + +--------+ + + + | CBC WITH | STAT | 05/03/2019 | | Results for this | | DIFFERENTIAL | | 8:51 PM | | procedure are in the | | | | PDT | | results section. | + +--------+ + + + | LIPASE | STAT | 05/03/2019 | | Results for this | | | | 8:51 PM | | procedure are in the | | | | PDT | | results section. | + +--------+ + + + | COMPREHENSIVE | STAT | 05/03/2019 | | Results for this | | METABOLIC PANEL | | 8:51 PM | | procedure are in the | | | | PDT | | results section. | + +--------+ + + + documented in this encounter Results XR Chest PA and Lateral (05/03/2019 10:17 PM PDT) + + | Specimen | + + | | + + + + + | Narrative | Performed At | + + + | EXAM: XR CHEST PA AND LATERAL dated 05/03/2019 10:17 PM HISTORY: | [facility] | | ABDOMINAL PAIN EMESIS Comparison: None. TECHNIQUE: Frontal | | | and lateral views of the chest. FINDINGS: The lungs are | | | symmetrically aerated. They are clear. There are no pleural | | | effusions. There is no pneumothorax. The cardiac and mediastinal | | | contours are not enlarged. The visible osseous structures are | | | unremarkable. IMPRESSION - No radiographic evidence for | | | acute disease in the chest. Dictated and Signed by: Ashok Taveras MD Electronically signed: 05/04/2019 8:06 AM | | + + + + + | Procedure Note | + + | Oumar, Rad Results In - 05/04/2019 8:09 AM PDT EXAM: XR CHEST PA AND LATERAL dated | | 05/03/2019 10:17 PMHISTORY: ABDOMINAL PAINEMESISComparison: None.TECHNIQUE: Frontal and | | lateral views of the chest.FINDINGS:The lungs are symmetrically aerated. They are | | clear. There are no pleuraleffusions. There is no pneumothorax. The cardiac and | | mediastinal contours arenot enlarged. The visible osseous structures are unremarkable. | | IMPRESSION -No radiographic evidence for acute disease in the chest. Dictated and | | Signed by: Ashok Taveras MD Electronically signed: 05/04/2019 8:06 AM | |TECHNIQUE: Frontal and lateral views of the chest. | | | |FINDINGS: | |The lungs are symmetrically aerated. They are clear. There are no pleural | |effusions. There is no pneumothorax. The cardiac and mediastinal contours are | |not enlarged. The visible osseous structures are unremarkable. | | | |IMPRESSION - | | | |No radiographic evidence for acute disease in the chest. | | | |Dictated and Signed by: Ashok Taveras MD | | Electronically signed: 05/04/2019 8:06 AM | + + + +---------+ + + | Performing | Address | City/State/Zipcode | Phone Number | | Organization | | | | + +---------+ + + | [facility] | | | | + +---------+ + + Extra Lavender Top Tube (05/03/2019 8:51 PM PDT) + +-------+ + + + | Component | Value | Ref Range | Performed | Pathologist | | | | | At | Signature | + +-------+ + + + | Extra | Done | | [facility] | | | Lavender | | | [facility] | | | Top Tube | | | MEDICAL | | | | | | CENTER - | | | | | | LABORATORY | | + +-------+ + + + + + | Specimen | + + | Blood | + + + + + + + | Performing | Address | City/State/Zipcode | Phone Number | | Organization | | | | + + + + + | [facility] | [address] | [place], [place] | [phone] | | [facility] | | [address] | | | - LABORATORY | | | | + + + + + Extra Green Top Tube (05/03/2019 8:51 PM PDT) + +-------+ + + + | Component | Value | Ref Range | Performed | Pathologist | | | | | At | Signature | + +-------+ + + + | Extra Green | Done | | [facility] | | | Top Tube | | | [facility] | | | | | | MEDICAL | | | | | | CENTER - | | | | | | LABORATORY | | + +-------+ + + + + + | Specimen | + + | Blood | + + + + + + + | Performing | Address | City/State/Zipcode | Phone Number | | Organization | | | | + + + + + | [facility] | [address] | [place], [place] | [phone] | | [facility] | | [address] | | | - LABORATORY | | | | + + + + + Lipase (05/03/2019 8:51 PM PDT) + + + + + + | Component | Value | Ref Range | Performed | Pathologist | | | | | At | Signature | + + + + + + | Lipase | 31Comment: New method in | 12 - 53 U/L | [facility] | | | | use as of October 14 | | [facility] | | | | 2018. Check reference | | MEDICAL | | | | range for changes.Some | | CENTER - | | | | analytes show | | LABORATORY | | | | significant variation | | | | | | from the previous | | | | | | method.It may be | | | | | | necessary to set a new | | | | | | baseline for this | | | | | | analyte. | | | | + + + + + + + + | Specimen | + + | Blood | + + + + + + + | Performing | Address | City/State/Zipcode | Phone Number | | Organization | | | | + + + + + | [facility] | [address] | [place] | [phone] | | [facility] | | [address] | | | - LABORATORY | | | | + + + + + Comprehensive Metabolic Panel (05/03/2019 8:51 PM PDT) + + + + + + | Component | Value | Ref Range | Performed | Pathologist | | | | | At | Signature | + + + + + + | Na | 137 | 136 - 145 | [facility] | | | | | mmol/L | [facility] | | | | | | MEDICAL | | | | | | CENTER - | | | | | | LABORATORY | | + + + + + + | K | 3.7 | 3.4 - 5.1 | [facility] | | | | | mmol/L | [facility] | | | | | | MEDICAL | | | | | | CENTER - | | | | | | LABORATORY | | + + + + + + | Cl | 100 | 98 - 107 mmol/L | [facility] | | | | | | [facility] | | | | | | MEDICAL | | | | | | CENTER - | | | | | | LABORATORY | | + + + + + + | CO2 | 27 | 20 - 31 mmol/L | [facility] | | | | | | [facility] | | | | | | MEDICAL | | | | | | CENTER - | | | | | | LABORATORY | | + + + + + + | Anion Gap | 10 | 3 - 16 mmol/L | [facility] | | | | | | [facility] | | | | | | MEDICAL | | | | | | CENTER - | | | | | | LABORATORY | | + + + + + + | Glucose | 113 (H) | 60 - 106 mg/dL | [facility] | | | | | | [facility] | | | | | | MEDICAL | | | | | | CENTER - | | | | | | LABORATORY | | + + + + + + | BUN | 13 | 9 - 23 mg/dL | [facility] | | | | | | [facility] | | | | | | MEDICAL | | | | | | CENTER - | | | | | | LABORATORY | | + + + + + + | Creatinine | 1.19 | 0.70 - 1.30 | [facility] | | | | | mg/dL | [facility] | | | | | | MEDICAL | | | | | | CENTER - | | | | | | LABORATORY | | + + + + + + | eGFR if not | >60Comment: GLOMERULAR | >=60 | [facility] | | | | FILTRATION | mL/min/1.73m2 | [facility] | | | CENTRAL AFRICAN | RATE,ESTIMATED | | MEDICAL | | | | mL/min/1.67u6Grye than | | CENTER - | | | | 60 Chronic kidney | | LABORATORY | | | | disease,if found over a | | | | | | 3-month period.Less than | | | | | | 15 Kidney failureFor | | | | | | | | | | | | Americans,multiply the | | | | | | calculated GFR by 1.21. | | | | | | | | | | + + + + + + | Calcium | 10.5 (H) | 8.7 - 10.4 | [facility] | | | | | mg/dL | [facility] | | | | | [facility] | | | | | | CENTER - | | | | | | LABORATORY | | + + + + + + | Albumin | 5.4 (H) | 3.2 - 4.8 g/dL | [facility] | | | | | | [facility] | | | | | | [facility] | | | | | | CENTER - | | | | | | LABORATORY | | + + + + + + | Bilirubin | 1.4 (H) | 0.3 - 1.2 mg/dL | [facility] | | | Total | | | [facility] | | | | | | MEDICAL | | | | | | CENTER - | | | | | | LABORATORY | | + + + + + + | Total | 8.2 | 5.7 - 8.2 g/dL | [facility] | | | Protein | | | [facility] | | | | | | MEDICAL | | | | | | CENTER - | | | | | | LABORATORY | | + + + + + + | AST | 20 | 0 - 34 U/L | [facility] | | | | | | [facility] | | | | | | MEDICAL | | | | | | CENTER - | | | | | | LABORATORY | | + + + + + + | ALT | 20 | 10 - 49 U/L | [facility] | | | | | | [facility] | | | | | | MEDICAL | | | | | | CENTER - | | | | | | LABORATORY | | + + + + + + | Alkaline | 81 | 46 - 116 U/L | [facility] | | | Phosphatase | | | [facility] | | | | | | MEDICAL | | | | | | CENTER - | | | | | | LABORATORY | | + + + + + + | Globulin | 2.8 | 2.1 - 3.8 g/dL | [facility] | | | | | | [facility] | | | | | | MEDICAL | | | | | | CENTER - | | | | | | LABORATORY | | + + + + + + | Albumin/Lizbeth | 1.9 | 0.8 - 1.9 | [facility] | | | bulin Ratio | | | [facility] | | | | | | MEDICAL | | | | | | CENTER - | | | | | | LABORATORY | | + + + + + + | BUN/Creatin | 10.9 | | [facility] | | | ine Ratio | | | [facility] | | | | | | MEDICAL | | | | | | CENTER - | | | | | | LABORATORY | | + + + + + + + + | Specimen | + + | Blood | + + + + + + + | Performing | Address | City/State/Zipcode | Phone Number | | Organization | | | | + + + + + | [facility] | [address] | [place] | [phone] | | [facility] | | [address] | | | - LABORATORY | | | | + + + + + CBC with Differential (05/03/2019 8:51 PM PDT) + + + + + + | Component | Value | Ref Range | Performed | Pathologist | | | | | At | Signature | + + + + + + | WBC | 11.0 | 4.0 - 11.0 K/uL | [facility] | | | | | | [facility] | | | | | | MEDICAL | | | | | | CENTER - | | | | | | LABORATORY | | + + + + + + | RBC | 5.44 | 4.30 - 5.70 | [facility] | | | | | M/uL | [facility] | | | | | | MEDICAL | | | | | | CENTER - | | | | | | LABORATORY | | + + + + + + | Hemoglobin | 16.6 | 13.5 - 18.0 | [facility] | | | | | g/dL | [facility] | | | | | | [facility]ICAL | | | | | | CENTER - | | | | | | LABORATORY | | + + + + + + | Hematocrit | 46.8 | 40.0 - 51.0 % | [facility] | | | | | | [facility] | | | | | | MEDICAL | | | | | | CENTER - | | | | | | LABORATORY | | + + + + + + | MCV | 86.0 | 83.0 - 101.0 fL | [facility] | | | | | | [facility] | | | | | | MEDICAL | | | | | | CENTER - | | | | | | LABORATORY | | + + + + + + | MCH | 30.5 | 28.0 - 35.0 pg | [facility] | | | | | | [facility] | | | | | | MEDICAL | | | | | | CENTER - | | | | | | LABORATORY | | + + + + + + | MCHC | 35.5 | 32.0 - 36.0 | [facility] | | | | | g/dL | [facility] | | | | | | MEDICAL | | | | | | CENTER - | | | | | | LABORATORY | | + + + + + + | RDW-CV | 12.0 | <15.0 % | [facility] | | | | | | [facility] | | | | | | MEDICAL | | | | | | CENTER - | | | | | | LABORATORY | | + + + + + + | RDW-SD | 37.8 | 35.1 - 46.3 fL | [facility] | | | | | | [facility] | | | | | | MEDICAL | | | | | | CENTER - | | | | | | LABORATORY | | + + + + + + | Platelet | 355 | 140 - 440 K/uL | [facility] | | | Count | | | [facility] | | | | | | MEDICAL | | | | | | CENTER - | | | | | | LABORATORY | | + + + + + + | MPV | 8.6 | 6.5 - 12.4 fL | [facility] | | | | | | [facility] | | | | | | MEDICAL | | | | | | CENTER - | | | | | | LABORATORY | | + + + + + + | % | 80.6 | 45.0 - 82.0 % | [facility] | | | Neutrophils | | | [facility] | | | | | | MEDICAL | | | | | | CENTER - | | | | | | LABORATORY | | + + + + + + | % | 14.3 (L) | 20.0 - 45.0 % | [facility] | | | Lymphocytes | | | [facility] | | | | | | MEDICAL | | | | | | CENTER - | | | | | | LABORATORY | | + + + + + + | % Monocytes | 4.3 | 4.0 - 12.0 % | [facility] | | | | | | [facility] | | | | | | MEDICAL | | | | | | CENTER - | | | | | | LABORATORY | | + + + + + + | % | 0.0 | 0.0 - 5.0 % | [facility] | | | Eosinophils | | | [facility] | | | | | | MEDICAL | | | | | | CENTER - | | | | | | LABORATORY | | + + + + + + | % Basophils | 0.3 | 0.0 - 1.0 % | [facility] | | | | | | [facility] | | | | | | MEDICAL | | | | | | CENTER - | | | | | | LABORATORY | | + + + + + + | % Immature | 0.5 (H)Comment: | 0.0 - 0.4 % | [facility] | | | Granulocyte | Preliminary studies have | | [facility] | | | s | indicated the IG% | | MEDICAL | | | | and/or IG# show promise | | CENTER - | | | | as an early indicator | | LABORATORY | | | | for infection. | | | | + + + + + + | Absolute | 8.87 (H) | 1.80 - 8.50 | [facility] | | | Neutrophils | | K/uL | [facility] | | | | | | MEDICAL | | | | | | CENTER - | | | | | | LABORATORY | | + + + + + + | Absolute | 1.57 | 0.60 - 3.20 | [facility] | | | Lymphocytes | | K/uL | [facility] | | | | | | MEDICAL | | | | | | CENTER - | | | | | | LABORATORY | | + + + + + + | Absolute | 0.47 | 0.00 - 1.00 | [facility] | | | Monocytes | | K/uL | [facility] | | | | | | MEDICAL | | | | | | CENTER - | | | | | | LABORATORY | | + + + + + + | Absolute | 0.00 | 0.00 - 0.40 | [facility] | | | Eosinophils | | K/uL | [facility] | | | | | | MEDICAL | | | | | | CENTER - | | | | | | LABORATORY | | + + + + + + | Absolute | 0.03 | 0.00 - 0.10 | [facility] | | | Basophils | | K/uL | [facility] | | | | | | MEDICAL | | | | | | CENTER - | | | | | | LABORATORY | | + + + + + + | Absolute | 0.05 (H) | 0.00 - 0.03 | [facility] | | | Immature | | K/uL | [facility] | | | Granulocyte | | | MEDICAL | | | s | | | CENTER - | | | | | | LABORATORY | | + + + + + + | % nRBC | 0 | 0 - 2 per 100 | [facility] | | | | | WBCs | [facility] | | | | | | MEDICAL | | | | | | CENTER - | | | | | | LABORATORY | | + + + + + + | Absolute | 0.00 | 0.00 - 0.01 | [facility] | | | nRBC | | K/uL | [facility] | | | | | | MEDICAL | | | | | | CENTER - | | | | | | LABORATORY | | + + + + + + + + | Specimen | + + | Blood | + + + + + + + | Performing | Address | City/State/Zipcode | Phone Number | | Organization | | | | + + + + + | [facility] | [address] | [place] | [phone] | | [facility] | | [address] | | | - LABORATORY | | | | + + + + + documented in this encounter Visit Diagnoses + + | Diagnosis | + + | Epigastric pain - Primary Abdominal pain, epigastric | + + documented in this encounter Administered Medications + +--------+ +-------+------+------+ | Medication Order | MAR | Action | Dose | Rate | Site | | | Action | Date | | | | + +--------+ +-------+------+------+ | famotidine (PEPCID) injection | Given | 05/03/20 | 20 mg | | | | 20 mg 20 mg, Intravenous, ONCE, | | 19 8:58 | | | | | 05/03/19 at 2055, For 1 dose, | | PM PDT | | | | | Dilute 2 mL of famotidine with 8 | | | | | | | mL of normal saline to a final | | | | | | | concentration of 2 mg/mL. | | | | | | | Administer ordered dose over a | | | | | | | period of at least 2 minutes., | | | | | | + +--------+ +-------+------+------+ + +---+ | | | + +---+ | morphine injection 2-4 mg 2-4 | | | mg, Intravenous, EVERY 1 HOUR | | | PRN, Pain, Starting 05/03/19 | | | at 2105, For 1 dose | | + +---+ | | | + +---+ + +-------+ +------+---+---+ | morphine injection 4 mg 4 mg, | Given | 05/03/20 | 2 mg | | | | Intravenous, EVERY 1 HOUR PRN, | | 19 9:01 | | | | | Pain, Starting Fri05/03/19 at | | PM PDT | | | | | 2049, For 2 doses | | | | | | + +-------+ +------+---+---+ +---+---+ | | | +---+---+ + +-------+ +------+---+---+ | ondansetron (ZOFRCLINT [place]) | Given | 05/03/20 | 4 mg | | | | disintegrating tablet 4 mg 4 mg, | | 19 8:32 | | | | | Oral, ONCE, Fri05/03/19 at 2034, | | PM PDT | | | | | For 1 dose | | | | | | + +-------+ +------+---+---+ +---+---+ | | | +---+---+ documented in this encounter
--- OUTSIDE RECORDS SUMMARY | ~2020-02-12 | XMS | Clinical Summary ---
Demographics + + + | Address | [address] | | | [place] [facility] [address] | + + + | Home Phone | | + + + | Preferred Language | Unknown | + + + | Marital Status | Single | + + + | Temple Affiliation | 1013 | + + + | Race | Unknown | + + + | Ethnic Group | Unknown | + + + Author + + + | Author | [facility] | | | and [place] | + + + | Organization | [facility] | | | and [place] [...] [place] | | | | | [address] | | + + + + + Care Team Providers + +------+ + | Care Photo Studio Assistant Name | Role | Phone | + +------+ + | Ugo Schofield MD | PCP | | + +------+ + Allergies No Known Allergies Medications + + + +---------+------+------+-------+ | Medication | Sig | Dispensed | Refills | Star | End | Statu | | | | | | t | Date | s | | | | | | Date | | | + + + +---------+------+------+-------+ | raNITIdine | Take 150 mg by mouth | | 0 | | | Activ | | (RANITIDINE 150 MAX | 2 times daily. | | | | | e | | STRENGTH) 150 mg | | | | | | | | tablet | | | | | | | + + + +---------+------+------+-------+ | ondansetron | Take 1 tablet by | 10 | 0 | 09/1 | | Activ | | (ZOFRAN ODT) 4 mg | mouth every 8 hours | tablet | | 6/20 | | e | | disintegrating | as needed for | | | 19 | | | | tablet | Nausea. | | | | | | + + + +---------+------+------+-------+ | omeprazole | One po bid | 180 | 1 | 10/0 | | Activ | | (PRILOSEC) 20 mg | | capsule | | 3/20 | | e | | capsuleIndications: | | | | 19 | | | | Gastroesophageal | | [...] | | | | + + + +---------+------+------+-------+ | sertraline | Take 1 tablet by | 30 | 2 | / | | Activ | | (ZOLOFT) 50 mg | mouth Daily. | tablet | | 01/04 | | e | | tabletIndications: | | | | 20 | | | | Depression, | | | | | | | | unspecified | | | | | | | | depression type | | | | | | | + + + +---------+------+------+-------+ Active Problems + + + | Problem | Noted Date | + + + | Gastritis, presence of bleeding unspecified, unspecified | 07/05/2019 | | chronicity, unspecified gastritis type | | + + + + + | Overview: Added automatically from request for surgery | | [id number] | + + + +---+ | GERD (gastroesophageal reflux disease) | | + +---+ | Marijuana use | | + +---+ | Alcohol use | | + +---+ + + | Overview: He reports that he drinks about 36.0 oz of alcohol | | per week. | + + Resolved Problems + + + + | Problem | Noted | Resolved | | | Date | Date | + + + + | Gastroesophageal reflux disease, esophagitis presence not | 07/05/20 | | | specified | 19 | 9 | + + + + + + | Overview: Added automatically from request for surgery | | [id number] | + + + + + + | Cannabis use, uncomplicated | 07/05/20 | | | | 19 | 9 | + + + + + + | Overview: Added automatically from request for surgery | | [id number] | + + Encounters +--------+ + + + + | Date | Type | Specialty | Care Team | Description | +--------+ + + + + | 12/30/ | Virtual | Family Medicine | Morasch, Ugo G, | Gastroesophageal | | 2020 | Office | | MD | reflux disease, | | | Visit | | | esophagitis presence | | | | | | not specified | | | | | | (Primary Dx); | | | | | | Depression, | | | | | | unspecified | | | | | | depression type | +--------+ + + + + from Last 3 Months Family History + + +------+ + | Medical History | Relation | Name | Comments | + + +------+ + | High blood pressure | Mother | | | + + +------+ + + +------+--------+ + | Relation | Name | Status | Comments | + +------+--------+ + | Mother | | | | + +------+--------+ + Social History + +-------+ +--------+------+ | [...] on file | | + + + Last Filed Vital Signs + + + [...] | | + + + + + Plan of Treatment + + + + + | Health Maintenance | Due Date | Last | Comments | | | | Done | | + + + + + | Vaccine: Influenza | | 06/26/20 | | | (Season Ended) | 0 | 10, | | | | | 05/19/20 | | | | | 09 | | + + + + + | Vaccine: | | 02/02/20 | | | Dtap/Tdap/Td (3 - | 7 | 17, | | | Td) | | 04/09/20 | | | | | 06 | | + + + + + Results Not on filefrom Last 3 Months Insurance + +--------+ +--------+-------+---------+--------+ | Payer | Benefi | Subscriber | Effect | Phone | Address | Type | | | t Plan | ID | toñito | | | | | | / | | Dates | | | | | | Group | | | | | | + +--------+ +--------+-------+---------+--------+ | [employer]ICA[employer] HMO | RUBI | [id number] | 11/17/19 | | | Medica | | | APPLE | 0 | 19-Pre | | | id | | | | | sent | | | | | | [place] | | | | | | | | [place] | | | | | | + +--------+ +--------+-------+---------+--------+ + +--------+ +--------+ + + | Guarantor Name | Accoun | Relation to | Date | Phone | Billing Address | | | t Type | Patient | of | | | | | | | | | | + +--------+ +--------+ + + | Lit Munoz | Person | Self | [birth year][address][birth year][address] | | [place] | al/Fam | | 1996 | [phone] | [place] [facility] [place] | | | robin | | | [address] ([place]) | [phone] | + +--------+ +--------+ + + Advance Directives + + + + + | Type | Date Recorded | Patient | Explanation | | | | Senior Drafter | | + + + + + | Power of | | | | | Epic Interface Analyst | | | | + + + + + | Advance | 07/27/2019 | | | | Directive | 10:53 AM | | | + + + + +
--- OUTSIDE RECORDS SUMMARY | ~2020-02-12 | XMS | Encounter Summary ---
Demographics + + + | Address | [address] | | | [place] [facility] [address] | + + + | Home Phone | | + + + | Preferred Language | Unknown | + + + | Marital Status | Single | + + + | Methodist Affiliation | 1013 | + + + | Race | Unknown | + + + | Ethnic Group | Unknown | + + + Author + + + | Author | [facility] | | | and [place] | + + + | Organization | [facility] | | | and [place] [...] [place], [place] | | | | | [address] | | + + + + + Care Team Providers + +------+ + | Care Airbrush Artist Photography Name | Role | Phone | + +------+ + PCP | Unavailable | + +------+ + Encounter Details +--------+ + + + + | Date | Type | Department | Care Team | Description | +--------+ + + + + | 10/09/ | [facility] | MAURIZIO QUINTERO | Yumiko Kerns | | | 2001 | Encounter | FAMILY [address] [address] | | | | | | [place] | | | | | | [place] | | | | | | [address] | | | | | | [phone] | | | +--------+ + + + [...]
--- OUTSIDE RECORDS SUMMARY | ~2020-02-12 | XMS | Encounter Summary ---
Demographics + + + | Address | [address] | | | [place] [facility] [address] | + + + | Home Phone | | + + + | Preferred Language | Unknown | + + + | Marital Status | Single | + + + | Confucianist Affiliation | 1013 | + + + | Race | Unknown | + + + | Ethnic Group | Unknown | + + + Author + + + | Author | [facility] | | | and [place] | + + + | Organization | [facility] | [...] [place], [place] | | | | | [address] | | + + + + + Care Team Providers + +------+ + | Care Laborer Poultry Hatchery Name | Role | Phone | + +------+ + | No, Physician | PCP | Unavailable | + +------+ + Encounter Details +--------+ + + + + | Date | Type | Department | Care Team | Description | +--------+ + + + + | 08// | Hospital | [facility] | Lana, Radu Armstrong, | | | 2013 | Encounter | [facility] | [address] | | | | | [address] [place] | [place] | | | | | [place] | [address] | | | | | [address] | | | | | | [phone] | | | +--------+ + + + [...] + | MISCELLANEOUS LAB | | | [phone] | + +---------+ + + | MISCELANIOUS LAB | | | [phone] | + +---------+ + + documented in this encounter Visit Diagnoses Not on filedocumented in this encounter"
--- OUTSIDE RECORDS SUMMARY | ~2020-02-12 | XMS | Encounter Summary ---
Demographics + + + | Address | [address] | | | [place] [facility] [address] | + + + | Home Phone | | + + + | Preferred Language | Unknown | + + + | Marital Status | Single | + + + | Yarsani Affiliation | 1013 | + + + | Race | Unknown | + + + | Ethnic Group | Unknown | + + + Author + + + | Author | [facility] | | | and [place] | + + + | Organization | [facility] | | | and [place] [...] [place] | | | | | [address] | | + + + + + Care Team Providers + +------+ + | Care Shaker Out Name | Role | Phone | + [...] [place] | | | | | | [address] | [address] | | | | | | Phone: | [address] | | | | | | [phone] | [place], | | | | | | Fax: | [place] [address] | | | | | | [phone] | Phone: | | | | | | | [phone] | | | | | | | Fax: | | | | | | | [phone] | +--------+ + + + + + [...] | [address] | [address], | | | | | geal reflux | [address] | [address] | | | | | disease, | [place] | [place], | | | | | esophagitis | [place], [place] | [place] [address] | | | | | presence not | [address] | Phone: | | | | | specified | Phone: | [phone] | | | | | Gastritis, | [phone] | Fax: | | | | | presence of | Fax: | [phone] | | | | | bleeding | [phone] | | | | | | unspecified, [...] | 05/20/ | Office | [facility] | Ugo Schofield, | Gastroesophageal | | 2019 | Visit | [facility] [place] | [address] | reflux disease, | | | | [address] | [address] [place], | esophagitis presence | | | | [place], [place] | [place] [address] | not specified | | | | [address] | [phone] | (Primary Dx); | | | | [phone] | | Gastritis, presence | | | [...] in the past and and this ma cruz feel weird. PMH: Anxiety GERD PSH: None signif Fhx: Adopted Dad biologic Christina, healthy Mom biologic brain aneurysm 30's , Bipolar and Depression. Shx: Born in [facility] since 2019 Single, 2 kids. Unemployed former [employer] Non smoker 15 drinks per [...] Marijuana abuse 4. Anxiety disorder, unspecified type [facility], External - AMB Referral Plan: As above, It sounds like his has a mild gastritis. He has some anxiety. He declines med ication for this but will send him to [facility] eval, RTC 2 months. Otherwi se [...]
--- OUTSIDE RECORDS SUMMARY | ~2020-02-12 | XMS | Encounter Summary ---
Demographics + + + | Address | [address] | | | [place] [facility] [address] | + + + | Home Phone | | + + + | Preferred Language | Unknown | + + + | Marital Status | Single | + + + | Moravian Affiliation | 1013 | + + + | Race | Unknown | + + + | Ethnic Group | Unknown | + + + Author + + + | Author | [facility] | | | and [place] | + + + | Organization | [facility] | | | and [...] [place] | | | | | [address] | | + + + + + Care Team Providers + +------+ + | Care Landscape Engineer Name | Role | Phone | + [...] + + | 07/19/ | Telephone | [facility] | Ashok Estrada MD | Appointment (r/s d | | 2018 | | GASTROENTEROLOGY | [address], [place] | egd) | | | | [address] [place] | [address] [place], [place] | | | | | [address] [place], [place] | [address] | | | | | [address] | | | | | | [phone] | | | +--------+ + + + [...] lives there now as we have a [place] a ddress, he states he is not [...] he is. Please call him back at [phone] signed by Jesusita Christianson at 9:55 AM PSTdocumented in this encounter Plan of Treatment Not on filedocumented as of this encounter Visit Diagnoses Not on filedocumented in this encounter
--- OUTSIDE RECORDS SUMMARY | ~2020-02-12 | XMS | Encounter Summary ---
Demographics + + + | Address | [address] | | | [place] [facility] [address] | + + + | Home Phone | | + + + | Preferred Language | Unknown | + + + | Marital Status | Single | + + + | Mosque Affiliation | 1013 | + + + | Race | Unknown | + + + | Ethnic Group | Unknown | + + + Author + + + | Author | [facility] | | | and [place] | + + + | Organization | [facility] | | | and [place] [...] [place] | | | | | [address] | | + + + + + Care Team Providers + +------+ + | Care Game Technician Name | Role | Phone | + +------+ + | Ugo Schofield MD | PCP | | + +------+ + Reason for Visit + +--------+ + | Reason | Onset | Comments | | | Date | | + +--------+ + | Results, Pathology | 07/30/ | egd | | | 2019 | | + +--------+ + Encounter Details +--------+ + + + + | Date | Type | Department | Care Team | Description | +--------+ + + + + | 07/30/ | Telephone | [facility] | Ashok Estrada MD | Results, Pathology | | 2019 | | GASTROENTEROLOGY | [address], [place] | (egd) | | | | [address] [place] | [address] [place], [place] | | | | | [address] [place], [place] | [id number] | | | | | [address] | | | | | | [phone] | | | +--------+ + + + [...] this encounter Miscellaneous Notes Telephone Encounter - Whitley Hardy RN - 07/30/2019 12:40 PM PSTSpoke with patient and reviewed Dr. Estrada's results with him. H. pylori negative, duodenal biopsies normal, es ophageal biopsies positive for reflux, negative for Landry's. Continue on omeprazole/Prilo sec 20 mg daily. If symptoms continue Dr. Estrada recommends ultrasound of upper abdomen. Oskar woodson will call if he has another episode of the extreme pain "where he wants to scream" whi ch time an ultrasound can be ordered by his PCP or another provider in our office.Electronic ally signed by Whitley Hardy RN at 07/30/2019 12:42 PM PSTTelephone Encounter - Whitley Pacheco RN - 07/30/2019 12:34 PM PST----- Message from Ashok Estrada MD sent at 5:01 PM PST ----- The patient underwent upper endoscopy for evaluation of melena epigastric pain. Upper endo scopy was remarkable for reflux esophagitis antral gastritis. H. pylori biopsy was negative distal esophageal biopsies were positive for reflux negative for Landry's metaplasia. Josefa pollard does have a hiatal hernia and as such would recommend that he will continue on his Pril osec 20 mg on a daily basis. If the patient continues to have abdominal symptoms and furthe r evaluation would need to be done such as possible upper abdominal ultrasound documented in this encounter Plan of Treatment Not on filedocumented as of this encounter Visit Diagnoses Not on filedocumented in this encounter
--- OUTSIDE RECORDS SUMMARY | ~2020-02-12 | XMS | Encounter Summary ---
Demographics + + + | Address | [address] | | | [place] [facility] [address] | + + + | Home Phone | | + + + | Preferred Language | Unknown | + + + | Marital Status | Single | + + + | Jainism Affiliation | 1013 | + + + | Race | Unknown | + + + | Ethnic Group | Unknown | + + + Author + + + | Author | [facility] | | | and [place] | + + + | Organization | [facility] [...] [place] | | | | | [address] | | + + + + + Care Team Providers + +------+ + | Care Loss Control Manager Name | Role | Phone | [...] + + | 04/03/ | Office | [facility] | Radu Schwartz, | Injury of right | | 2013 | Visit | CARE [address] | MD [address] | hand, initial | | | | [place] | [place] | encounter (Primary | | | | [address] | [address] | Dx); Right forearm | | | | [phone] | | injury, initial | | | [...] later reports apparently he told the x-ray video surveillance technician nolberto t he hit another object. [...] soft | | tissueinjury.Dictated and Signed by: Eilu Sotomayor MD Electronically signed: | | 04/04/2014 [...] + | MISCELLANEOUS LAB | | | [phone] | + +---------+ + + | MISCELANIOUS LAB | | | [phone] | + +---------+ + + XR Forearm [...] + | MISCELLANEOUS LAB | | | [phone] | + +---------+ + + | MISCELANIOUS LAB | | | [phone] | + +---------+ + + documented in [...]
--- OUTSIDE RECORDS SUMMARY | ~2020-02-12 | XMS | Encounter Summary ---
Demographics + + + | Address | [address] | | | [place] [facility] [address] | + + + | Home Phone | | + + + | Preferred Language | Unknown | + + + | Marital Status | Single | + + + | Anabaptism Affiliation | 1013 | + + + | Race | Unknown | + + + | Ethnic Group | Unknown | + + + Author + + + | Author | [facility] | | | and [place] | + + + | Organization | [facility] | | | and [place] [...] [place] | | | | | [address] | | + + + + + Care Team Providers + +------+ + | Care Print Line Feeder Name | Role | Phone | + [...] | | Gastroesopha | | [address], | | | | | geal reflux | | [address] | | | | | disease, | | [place], | | | | | esophagitis | | [place] [address] | | | | | presence not | | Phone: | | | | | specified | | [phone] | | | | | Gastritis, | | Fax: | | | | | presence of | | [phone] | | | | | bleeding | [...] | | | | | | | [place] | | | | | | | ESOPHAGOGAST | | | | | | | RODUODENOSCO | | | | | | | PY TRANSORAL | | | | | | | DIAGNOSTIC | | | | | | | [place] EGD | | | | | | | TRANSORAL | | | | | | | BIOPSY | | | | | | | SINGLE/MULTI | | | | | | | PLE [place] | | | | | | | [...] + + | 07/27/ | [facility]est[facility] | [facility] | Wagner Tyler | | | 2019 | Event | MED CTR MP INTRA OP | MD Torey [address] | | | | | [address] | [address] [place] | | | | | [place] | [place] [address] | | | | | [address] | [phone] | | | | | [phone] | | | | | | | Suhail G[place]rie G, | | | | | | [address] | | | | | | [place] | | | | | | [address] | | | | | | | [...] 1440 by | | eral | Antecubital; [id number] | Leslie Angel RN | Priya Mcguire [...] EVALUATION Lit Munoz 23 y.o. male 1995 [id number] Procedure(s) EGD (N/A Mouth) Cooperates? Yes Mental [...] by Wagner Tyler MD 07/27/2019 2:23 PM [facility]ron[facility] signed by MD carlota Mason t 07/27/2019 2:23 PM PSTAnesthesia Preprocedure Evaluation - [place] Tyler MD - 1:42 PM PST ANESTHESIA PREANESTHESIA EVALUATION Lit Munoz 23 y.o. male 1995 [id number] Procedure(s): EGD (N/A Mouth) Medical,anesthesia, drug, allergy [...] NOTE Lit Munoz 23 y.o. male 1995 [id number] EGD (N/A Mouth) HANDOFF NOTE Handoff Protocol [...] team. Wagner Tyler MD 07/27/2019 2:07 PM [facility]ron[facility] signed by [place] Tyler MD a t [...]
--- OUTSIDE RECORDS SUMMARY | ~2020-02-12 | XMS | Encounter Summary ---
Demographics + + + | Address | [address] | | | [place] [facility] [address] | + + + | Home Phone | | + + + | Preferred Language | Unknown | + + + | Marital Status | Single | + + + | Moravian Affiliation | 1013 | + + + | Race | Unknown | + + + | Ethnic Group | Unknown | + + + Author + + + | Author | [facility] | | | and [place] | + + + | Organization | [facility] | | | and [...] [place] | | | | | [address] | | + + + + + Care Team Providers + +------+ + | Care Methods Study Analyst Name | Role | Phone | + [...] 2019 | | GASTROENTEROLOGY | [address], [place] | | | | | [address] [place] | [address] [place], [place] | | | | | [address] [place], [place] | [address] | | | | | [address] | | | | | | [phone] | | | +--------+ + + + [...] Miscellaneous Notes Telephone Encounter - Travis, Radha, Analytics Intern - 06/17/2019 3:55 PM PDTScheduled p atient [...]
--- OUTSIDE RECORDS SUMMARY | ~2020-02-12 | XMS | Encounter Summary ---
Demographics + + + | Address | [address] | | | [place] [facility] [address] | + + + | Home Phone | | + + + | Preferred Language | Unknown | + + + | Marital Status | Single | + + + | Protestant Affiliation | 1013 | + + + | Race | Unknown | + + + | Ethnic Group | Unknown | + + + Author + + + | Author | [facility] | | | and [place] | + + + | Organization | [facility] | [...] [place] | | | | | [address] | | + + + + + Care Team Providers + +------+ + | Care Assistant Clinical Director Name | Role | Phone | + [...] [place] | | | | | | [address] | [address] Phone: | | | | | | Phone: | [phone] | | | | | | [phone] | Fax: | | | | | | Fax: | [phone] | | | | | | [phone] | | +--------+ + + + + + Reason for Visit + + + | Reason | Comments | + + + | Medication | | | Management | | + + + Encounter Details +--------+ + + + + | Date | Type | Department | Care Team | Description | +--------+ + + + + | 12/30/ | Virtual | [facility] | Ugo Schofield, | Gastroesophageal | | 2019 | Office | [facility] | [address] | reflux disease, | | | Visit | [facility] [place] | [address] [place], | esophagitis presence | | | | [address] | [place] [address] | not specified | | | | [address] [place], | [phone] | (Primary Dx); | | | | [place] [address] | | Depression, | | | | [phone] | | unspecified | | | | [...] through the use of telemedicine. Telemedicine enables [facility] care providers at different locations to [...] I,Ugo Schofield MD am lice nsed. Subjective: [facility] Virtual: Iggi-le-mxjr real-time secure synchronous vi nell visit. Patient acknowledged the Authorization to Treat and Notice of Privacy Practice prior to con nection. Provider location: [facility] Quality of connection: video and audio working Verification: location of patient at the time of visit: zoom Photo ID: on file : 1995 Primary care provider: Ugo Schofield MD He is staying in [facility], 3x per week since high school. Recent [...] biologic brothers and dad who live in [facility]. He has been doing more drinking lately. He got in trouble on his birthday. He is having to court. Adopted mom lives in [place] PMH: Anxiety GERD PSH: none Fhx: Adopted Dad biologic [facility], healthy Mom biologic brain aneurysm 30's , Bipolar and Depression. Shx: Born in [facility] since 2019 Single, 2 kids. [employer]. [...] in 3 weeks. I sarmad l have Arieso reach out to him to assist him [...]
[~2020-02-12 21:48] MED LIST: NAPROXEN500 MG PO; NORCO 5-325 TA1 EACH PO
[2020-02-12] MEDS ORDERED: ZOLOFT100 MG PO (22:03)
== END 2020-02-13 10:59 | disposition home or self-care (01) ==
LOC: ED 21:48
DX: F32.9 Major depressive disorder, single episode, unspecified (principal); Z79.899 Other long term (current) drug therapy
CPT/HCPCS: 80053; 80176; 81001; 84443; 85025; 99284; G0480

== ENCOUNTER 2020-02-17 13:07 | Emergency (ER) | payer MEDICAID ==
[~2020-02-17] VITALS: Ht 177.8 cm; Wt 83.9 kg
--- OUTSIDE RECORDS SUMMARY | ~2020-02-17 | XMS | Encounter Summary ---
Demographics + + + | Address | [address] | | | [facility] [address] | + + + | Home Phone | | + + + | Preferred Language | Unknown | + + + | Marital Status | Single | + + + | Anglican Affiliation | 1013 | + + + | Race | Unknown | + + + | Ethnic Group | Unknown | + + + Author + + + | Author | [facility] | | | and [place] | + + + | Organization | [facility] | | | and [place] | [...] [place] | | | | | [address] | | + + + + + Care Team Providers + +------+ + | Care Case Planner Name | Role | Phone | + +------+ + | Ugo Schofield MD | PCP | | + +------+ + Reason for Referral Evaluate & Treat (Routine) +--------+ + + + + + | Status | Reason | Specialty | Diagnoses / | Referred By | Referred To | | | | | Procedures | Contact | Contact | +--------+ + + + + + | Closed | Specialty | Behavioral | Diagnoses | [facility]asch, | [facility] | | | Services | Health | Anxiety | Ugo Gardner MD | SEN | | | Required | | disorder, | [address] | COMPREHENSIVE | | | | | unspecified | [address] | MENTAL | | | | | type | [place] [facility] [place] | | | | | | [place], [place] | [place] | | | | | | [address] | [address] | | | | | | Phone: | [address] | | | | | | [phone] | [place], | | | | | | Fax: | [place] [address] | | | | | | [phone] | Phone: | | | | | | | [phone] | | | | | | | Fax: | | | | | | | [phone] | +--------+ + + + + + Evaluate & Treat (Routine) +--------+ + + + + + | Status | Reason | Specialty | Diagnoses / | Referred By | Referred To | | | | | Procedures | Contact | Contact | +--------+ + + + + + | Closed | Specialty | Gastroenterol | Diagnoses | [facility]asch, | Harri, | | | Services | ogy | | Ugo Gardner MD | Ashok Riley MD | | | Required | | Gastroesopha | [address] | [address], | | | | | geal reflux | [address] | [address] | | | | | disease, | [place], | | | | | esophagitis | [place], [place] | [place] [address] | | | | | presence not | [address] | Phone: | | | | | specified | Phone: | [phone] | | | | | Gastritis, | [phone] | Fax: | | | | | presence of | Fax: | [phone] | | | | | bleeding | [phone] | | | | | | unspecified, | | | | | | | unspecified | | | | | | | chronicity, | | | | | | | unspecified | | | | | | | gastritis | | | | | | | type | | | +--------+ + + + + + Reason for Visit + + + | Reason | Comments | + + + | Establish Care | | + + + | Abdominal Pain | nausea and vomitting, onset 2 weeks | + + + | Follow-up | ED, 05/09/19 | + + + Encounter Details +--------+---------+ + + + | Date | Type | Department | Care Team | Description | +--------+---------+ + + + | 05/20/ | Office | [facility] | Ugo Schofield, | Gastroesophageal | | 2019 | Visit | MEDICINE [facility] | [address] | reflux disease, | | | | [address] | [address] [place], | esophagitis presence | | | | [place], [place] | [place] [address] | not specified | | | | [address] | [phone] | (Primary Dx); | | | | [phone] | | Gastritis, presence | | | | | | of bleeding | | | | | | unspecified, | | | | | | unspecified | | | | | | chronicity, | | | | | | unspecified | | | | | | gastritis type; | | | | | | Marijuana abuse; | | | | | | Anxiety disorder, | | | | | | unspecified type | +--------+---------+ + + + Social History [...] + + + | Blood Pressure | 110/82 | 05/20/2019 9:59 AM | | | | | PDT | | + + + + + | Pulse | 78 | 05/20/2019 9:59 AM | | | | | PDT | | + + + + + | Temperature | 37.3 C (99.1 F) | 05/20/2019 9:59 AM | | | | | PDT | | + + + + + | Respiratory Rate | 18 | 05/20/2019 9:59 AM | | | | | PDT | | + + + + + | Oxygen Saturation | 97% | 05/20/2019 9:59 AM | | | | | PDT | | + + + + + | Inhaled Oxygen | - | - | | | Concentration | | | | + + + + + | Weight | 87.7 kg (193 lb 5.5 | 05/20/2019 9:59 AM | | | | oz) | PDT | | + + + + + | Height | - | - | | + + + + + | Body Mass Index | 28.55 | 05/03/2019 7:58 PM | | | | | PDT | | + + + + + documented in this encounter Progress Notes Ugo Schofield MD - 05/20/2019 10:00 AM PDTFormatting of this note might be different f rom the original. Subjective: Patient ID: Lit Munoz is a 23 y.o. male. HPI Information below has been pulled from previous visit, reviewed and updated as appropriate. GERD, 3x per week since high school. Recent black stools a few days ago. Some recent vomitting with recent binge. He on omeprazole once a day. stromach gets "queezy a lot" Anxiety Disorder, Poor sleep, He has been medication for this in the past and and this ma rcuz feel weird. PMH: Anxiety GERD PSH: None signif Fhx: Adopted Dad biologic Christina, healthy Mom biologic brain aneurysm 30's , Bipolar and Depression. Shx: Born in [facility] since 2019 Single, 2 kids. Unemployed former [employer] Non smoker 15 drinks per week. Marijuana, 3 grams Patient's medications, allergies, past medical, surgical, social and family histories were obtained and reviewed as appropriate. ROS Constitutional: no fever, No appetite change, no fatigue. HEENT: Neg ear pain, No nosebleeds,no rhinorrhea,no trouble swallowing and no sinus pressure. Eyes: Neg for pain and no visual disturbance. Respiratory: Neg for cough, no chest tightness, no shortness of breath no wheezing. Cardiovascular: Neg for chest pain, no palpitations and no leg swelling. Gastrointestinal: Neg for nausea,no vomiting,no diarrhea,no constipation no abdominal distention. No Belly pain, no black and no bloody stools, no excessive gas Genitourinary: Negative for urgency, no frequency, no decreased urine volume no difficulty urinating. No Bloody urine Musculoskeletal: Neg for myalgias, no back pain, no joint swelling and No ar thralgias. No joint pain Skin: Neg for color change,no rash and No wounds, no Strange moles Neurological: Neg for dizziness, no Weakness,no light-headedness, no numbness and no headaches. Hematological: Neg for adenopathy. Does not bruise/bleed easily. Psychiatric/Behavioral: Neg for suicidal ideas,no confusion and no agitation. no Depression, no anxiety,no sleep problems Objective: BP 110/82 | Pulse 78 | Temp 37.3 C (99.1 F) (Temporal) | Resp 18 | Wt 87.7 kg (193 lb 5.5 oz) | SpO2 97% | BMI 28.55 kg/m Physical Exam Heent, WNL, No carotid bruit Chest CTAB Heart RR&R /s M Abd S,NT,ND,BS+ Ext, no CCor E Neuro Non-focal Lymph, no cervical, axillary, inguinal adenopathy Musculoskeletal, no gross deformity or loss or range of motion Skin, no gross lesions Assessment: 1. Gastroesophageal reflux disease, esophagitis presence not specified Ambulatory referral to Gastroenterology omeprazole (PRILOSEC) 20 mg capsule 2. Gastritis, presence of bleeding unspecified, unspecified chronicity, unspecified gastrit is type Ambulatory referral to Gastroenterology omeprazole (PRILOSEC) 20 mg capsule 3. Marijuana abuse 4. Anxiety disorder, unspecified type [facility], External - AMB Referral Plan: As above, It sounds like his has a mild gastritis. He has some anxiety. He declines med ication for this but will send him to [facility] for eval, RTC 2 months. Otherwi se continue current medical regimen. documented in this encounter Plan of Treatment + + +--------+ + + | Name | Type | Priori | Associated Diagnoses | Order Schedule | | | | ty | | | + + +--------+ + + | Ambulatory referral | Outpatient | Routin | Gastroesophageal | Ordered: 05/20/2019 | | to Gastroenterology | Referral | e | reflux disease, | | | | | | esophagitis [...] | | | gastritis type | | + + +--------+ + + | Behavioral Health, | Outpatient | Routin | Anxiety disorder, | Ordered: 05/20/2019 | | External - AMB | Referral | e | unspecified type | | | Referral | | | | | + + +--------+ + + documented as of this encounter Visit Diagnoses + + | Diagnosis | + + | Gastroesophageal reflux disease, esophagitis presence not specified - Primary | + + | Gastritis, presence of bleeding unspecified, unspecified chronicity, unspecified | | gastritis type | + + | Marijuana abuse Cannabis abuse, unspecified | + + | Anxiety disorder, unspecified type | + + documented in this encounter
--- OUTSIDE RECORDS SUMMARY | ~2020-02-17 | XMS | Encounter Summary ---
Demographics + + + | Address | [address] | | | [facility] [address] | + + + | Home Phone | | + + + | Preferred Language | Unknown | + + + | Marital Status | Single | + + + | Uatsdin Affiliation | 1013 | + + + | Race | Unknown | + + + | Ethnic Group | Unknown | + + + Author + + + | Author | [facility] | | | and [place] | + + + | Organization | [facility] | | | and [place] | + + + | Address | Unknown | + + + | Phone | Unavailable | + + + Support + + + + + | Name | Relationship | Address | Phone | + + + + + | Heidy Yao | ECON | [address] | | | | | [place], [place] | | | | | [address] | | + + + + + Care Team Providers + +------+ + | Care Servicer Coin Machines Name | Role | Phone | + +------+ + | No, Physician | PCP | Unavailable | + +------+ + Encounter Details +--------+ + + + + | Date | Type | Department | Care Team | Description | +--------+ + + + + | 08// | Hospital | [facility] | Lana, Radu Armstrong, | | | 2013 | Encounter | [facility] | [address] | | | | | [address] [place] | [place] | | | | | [place] | [address] | | | | | [address] | | | | | | [phone] | | | +--------+ + + + [...] + + documented as of this encounter Plan of Treatment Not on filedocumented as of this encounter Procedures + +--------+ + + + | Procedure Name | Priori | Date/Time | Associated Diagnosis | Comments | | | ty | | | | + +--------+ + + + | XR FOREARM RIGHT 2 | Routin | 04/03/2014 | Right forearm | Results for this | | VW | e | 5:19 PM | injury, initial | procedure are in the | | | | PDT | encounter | results section. | + +--------+ + + + documented in this encounter Results XR Forearm Right 2 Vw (04/03/2014 5:19 PM PDT) + + | Specimen | + + | | + + + + + | Narrative | Performed At | + + + | XR FOREARM RIGHT 2 VW. 04/03/2014 5:05 PM HISTORY: right | MISCELANIOUS | | forearm pain . COMPARISON: None available. FINDINGS: Joint | LAB | | spaces and alignment are maintained, without evidence of fracture or | | | dislocation. The overlying soft tissues are prominent in the dorsum | | | of the mid forearm, suggestive of hematoma/contusive change. | | | IMPRESSION - No radiographic evidence of fracture or dislocation. | | | Soft tissue injury at the dorsum of the forearm. Dictated and | | | Signed by: Eliu Sotomayor MD Electronically signed: 04/04/2014 | | | 8:04 AM | | + + + + + | Procedure Note | + + | Oumar, Rad Results In - 04/04/2014 8:07 AM PDT XR FOREARM RIGHT 2 VW. 04/03/2014 5:05 | | PMHISTORY: right forearm pain . COMPARISON: None available.FINDINGS:Joint spaces and | | alignment are maintained, without evidence of fracture ordislocation. The overlying | | soft tissues are prominent in the dorsum of the midforearm, suggestive of | | hematoma/contusive change.IMPRESSION -No radiographic evidence of fracture or | | dislocation. Soft tissue injury at thedorsum of the forearm.Dictated and Signed by: | | Eliu Sotomayor MD Electronically signed: 04/04/2014 8:04 AM | |Joint spaces and alignment are maintained, without evidence of fracture or | |dislocation. The overlying soft tissues are prominent in the dorsum of the mid | |forearm, suggestive of hematoma/contusive change. | | | | | |IMPRESSION - | |No radiographic evidence of fracture or dislocation. Soft tissue injury at the | |dorsum of the forearm. | | | |Dictated and Signed by: Eliu Sotomayor MD | | Electronically signed: 04/04/2014 8:04 AM | + + + +---------+ + + | Performing | Address | City/State/Zipcode | Phone Number | | Organization | | | | + +---------+ + + | M[facility]OUS LAB | | | [phone] | + +---------+ + + | MISCELANIOUS LAB | | | [phone] | + +---------+ + + documented in this encounter Visit Diagnoses Not on filedocumented in this encounter"
--- OUTSIDE RECORDS SUMMARY | ~2020-02-17 | XMS | Encounter Summary ---
Demographics + + + | Address | [address] | | | [facility] [address] | + + + | Home Phone | | + + + | Preferred Language | Unknown | + + + | Marital Status | Single | + + + | Anabaptist Affiliation | 1013 | + + + | Race | Unknown | + + + | Ethnic Group | Unknown | + + + Author + + + | Author | [facility] | | | and [place] | + + + | Organization | [facility] | | | and [...] [place] | | | | | [address] | | + + + + + Care Team Providers + +------+ + | Care Ceramic Tiler Name | Role | Phone | + [...] | | Gastroesopha | | [address], | | | | | geal reflux | | [address] | | | | | disease, | | [place], | | | | | esophagitis | | [place] [address] | | | | | presence not | | Phone: | | | | | specified | | [phone] | | | | | Gastritis, | | Fax: | | | | | presence of | | [phone] | | | | | bleeding | [...] | | | | | | | MS | | | | | | | ESOPHAGOGAST | | | | | | | RODUODENOSCO | | | | | | | PY TRANSORAL | | | | | | | DIAGNOSTIC | | | | | | | MS EGD | | | | | | | TRANSORAL | | | | | | | BIOPSY | | | | | | | SINGLE/MULTI | | | | | | | PLE MS | | | | | | | ANESTHESIA | | | | | | | UPPER GI | | | | | | | ENDOSCOPIC | | | | | | | PX NOS EGD | | | +--------+--------+ + + + + Encounter Details +--------+ + + + + | Date | Type | Department | Care Team | Description | +--------+ + + + + | 07/27/ | Anest[facility] | [facility] | Wagner Tyler | | | 2019 | Event | [facility] OP | MD Torey [address] | | | | | [address] | [address] [place] | | | | | [place] | [place] [address] | | | | | [address] | [phone] | | | | | [phone] | | | | | | | Suhail Guthrie G, | | | | | | [address] | | | | | | [place] | | | | | | [address] | | | | | | | | +--------+ + + + + Anesthesia Record + + + + + | Procedure Name | Responsible | Anesthesia Start | Anesthesia Stop Time | | | Anesthesiologist | Time | | + + + + + | BRANDY (N/A Tatum) | Wagner Lema | 07/27/19 1339 | 07/27/19 1406 | | | MD Jayson | | | + + + + + +----+---+ + + | Da | T | Event | Comment | | te | i | | | | | m | | | | | e | | | +----+---+ + + | 12 | 1 | | | | /1 | 3 | | | | 0/ | 2 | | | | 20 | 8 | | | | 19 | | | | +----+---+ + + | | 1 | An Checkout | Pre-use anesthesia machine/equipment checkout. | | | 3 | | | | | 3 | | | | | 9 | | | +----+---+ + + | | 1 | An Start | Reassessment prior to anesthesia induction/procedure. | | | 3 | | | | | 3 | | | | | 9 | | | +----+---+ + + | | 1 | Preoxygenat | | | | 3 | ed | | | | 4 | | | | | 2 | | | +----+---+ + + | | 1 | Pre-Procedu | | | | 3 | ral Timeout | | | | 4 | Completed | | | | 7 | | | +----+---+ + + | | 1 | An | | | | 3 | Induction | | | | 4 | | | | | 7 | | | +----+---+ + + | | 1 | Breathing | | | | 3 | Spontaneous | | | | 4 | ly | | | | 8 | | | +----+---+ + + | | 1 | an lilia now | | | | 3 | | | | | 5 | | | | | 6 | | | +----+---+ + + | | 1 | an stop | | | | 4 | data | | | | 0 | | | | | 4 | | | +----+---+ + + | | 1 | An Stop | Patient handed off to recovery nurse. | | | 0 | | | | | 6 | | | +----+---+ + + +------+ | Meds | +------+ + + + | Name | Total | + + + | propofol | 220 mg | + + + | propofol | 155.7 mg | + + + | lidocaine 2% | 100 mg | + + + | lactated ringers (LR) infusion | 300 mL | + + + + + | Name | + + | O2 Flow Rate (L/Min) | + + + + | No blood administrations on file. | + + +--------+ + + + | Type | Details | Placement | Removal | +--------+ + + + | Periph | 07/27/19; 1336; Right; | 07/27/19 1336 by | 07/27/19 1440 by | | eral | Antecubital; [id number] | Leslie Angel RN | Priya Mcguire RN | | IV | catheter system; 20 gauge; | | | | | distraction, intradermal | | | | | injection; no longer indicated, | | | | | removed per policy/procedure, | | | | | catheter/device intact; short | | | | | term use; 07/27/19; 1440 | | | +--------+ + + + documented in this encounter Social History + +-------+ +--------+------+ | Tobacco [...] + + documented as of this encounter [place] Notes Anesthesia Postprocedure Evaluation - Wagner Tyler MD - 07/27/2019 2:23 PM PSTFo rmatting of this note might be different from the original. ANESTHESIA POSTANESTHESIA EVALUATION Lit Munoz 23 y.o. male 1995 [id number] Procedure(s) EGD (N/A Mouth) Cooperates? Yes Mental Status Performs simple tasks. Respiratory Satisfactory - Airway patent (self maintained). Cardiovascular Satisfactory - Blood pressure and heart rate acceptable Temperature Satisfactory Pain Satisfactory N/V Control Satisfactory Hydration Satisfactory - No signs of dehydration Vitals Value Taken Time Temp Pulse 65 07/27/2019 2:22 PM Resp 16 07/27/2019 2:05 PM BP 123/83 07/27/2019 2:05 PM Arterial Line BP Arterial Line BP 2 SpO2 98 % 07/27/2019 2:22 PM Vitals shown include unvalidated device data. Electronically signed by Wagner Tyler MD 07/27/2019 2:23 PM [facility] carlota Mason t 07/27/2019 2:23 PM PSTAnesthesia Preprocedure Evaluation - Wagner Tyler MD - 1:42 PM PST ANESTHESIA PREANESTHESIA EVALUATION Lit Munoz 23 y.o. male 1995 [id number] Procedure(s): EGD (N/A Mouth) Medical,anesthesia, drug, allergy histories reviewed, NPO status verified. (-) perioperative beta-torres/statin not given/taken, reason: not applicable/Not taking Be ta-Torres. Review of Systems / Med History Anesthesia History No anesthesia complications except where noted below. (+) previous surgery or anesthesia.(-) difficult intubation. Family Anesthesia History Family Anesthesia Negative except where noted below. Cardiovascular Negative except where noted below. Exercise tolerance >4 METS. Pulmonary (+) tobacco use (MJ). Gastrointestinal/Hepatic (+) acid reflux. Renal Negative except where noted below. Endocrine Negative except where noted below.(-) obesity. (-) Diabetes. Hematology/Other Negative except where noted below. Cancer Negative except where noted below. Neuromuscular Negative except where noted below. Psychology (+) substance abuse, alcohol, other, MJ - multiple times/day. Physical Exam Airway MP II, TM >3 FB, Mouth opening >2 FB. Neck: full ROM, extends >30 degrees. Jaw protrus ion normal. Facial hair present: Yes Dental grossly normal except where noted below. CV cardiovascular normal Rhythm regular. Rate normal. Pulm Clear to auscultation bilaterally. Neuro grossly normal. Anesthesia Plan ASA: 2 Type: TIVA, general. Induction: Intravenous. Potential problems: None anticipated. Monitors: Standard ASA monitors. Postop Pain Management: Consent statement: Anesthetic plan, alternatives, risks and benefits discussed with patient, family and signif icant other. discussed risks to teeth, drug reaction, heart problems, nausea, pain, perioper ative CV events, respiratory events, sore throat, voice injury Consenting person understands and agrees to proceed. PARQ. All questions answered in pre-op area before proceeding to GI suite - agrees to plan of TIV A with possibility of advanced airway if clinically indicated. Risk of aspiration and hypoxia with endoscopy under TIVA explicitly discussed and patient d esires to proceed. Patient was previous no-show at two other times. I personally called him at home this am to confirm he was coming for his procedure and that he would remain appropriately NPO. . Electronically Signed by: Wagner Tyler MD ESig date/time: 07/27/2019 1:41 PM documented in t his encounter Miscellaneous Notes Anesthesia Post-op Handoff - Wagner Tyler MD - 07/27/2019 2:07 PM PST ANESTHESIA HANDOFF NOTE Lit Munoz 23 y.o. male 1995 [id number] EGD (N/A Mouth) HANDOFF NOTE Handoff Protocol Used: post-procedure handoff checklist completed The following were completed during the transfer of care: 1. Identification of patient 2. Identification of responsible practitioner (primary service) 3. Discussion of pertinent medical history 4. Discussion of the surgical/procedure course (procedure, reason for surgery, procedure pe rformed) 5. Intraoperative anesthetic management and issues/concerns 6. Expectations/plans for the early post-procedure period 7. Opportunity for questions and acknowledgement of understanding of report from receiving team Patient Location: Phase II Condition: alert and awake Airway/O2: no supplemental O2 Comments: Supplemental Oxygen administered as necessary to maintain oxygen saturations abov e 92%. If the surgery does not typically require Narcotics then Multi-Modal Analgesia is not indic ated. The significant anesthesia concerns and VS in Epic were reviewed with the receiving team. Wagner Tyler MD 07/27/2019 2:07 PM [facility] Wagner Tyler MD a t 07/27/2019 2:07 PM PSTdocumented in this encounter Plan of Treatment Not on filedocumented as of this encounter Visit Diagnoses Not on filedocumented in this encounter Administered Medications + +--------+ +-------+------+------+ | Medication Order | MAR | Action | Dose | Rate | Site | | | Action | Date | | | | + +--------+ +-------+------+------+ | lidocaine (PF) 2% injection | Given | 07/27/20 | 50 mg | | | | Intravenous, PRN, Starting Tue | | 19 1:48 | | | | | 07/27/19 at 1347, Anesthesia | | PM PST | | | | | Intra-op | | | | | | + +--------+ +-------+------+------+ +-------+ +-------+---+---+ | Given | 07/27/20 | 50 mg | | | | | 19 1:47 | | | | | | PM PST | | | | +-------+ +-------+---+---+ +---+---+ | | | +---+---+ + +-------+ +-------+---+---+ | propofol (DIPRIVAN) injection | Given | 07/27/20 | 20 mg | | | | Intravenous, PRN, Starting Tue | | 19 1:56 | | | | | 07/27/19 at 1347, Anesthesia | | PM PST | | | | | Intra-op | | | | | | + +-------+ +-------+---+---+ +-------+ +-------+---+---+ | Given | 07/27/20 | 50 mg | | | | | 19 1:49 | | | | | | PM PST | | | | +-------+ +-------+---+---+ | Given | 07/27/20 | 50 mg | | | | | 19 1:48 | | | | | | PM PST | | | | +-------+ +-------+---+---+ +---+---+ | | | +---+---+ + +---------+ + +--------+---+ | propofol (DIPRIVAN) injection | New Bag | 07/27/20 | 300 | 155.7 | | | Intravenous, CONTINUOUS PRN, | | 19 1:47 | mcg/kg/m | mL/hr | | | Starting 07/27/19 at 1347, | | PM PST | in | | | | Anesthesia Intra-op | | | | | | + +---------+ + +--------+---+ +---+---+ | | | +---+---+ documented in this encounter"
--- OUTSIDE RECORDS SUMMARY | ~2020-02-17 | XMS | Encounter Summary ---
Demographics + + + | Address | [address] | | | [facility] [address] | + + + | Home Phone | | + + + | Preferred Language | Unknown | + + + | Marital Status | Single | + + + | Caodaism Affiliation | 1013 | + + + | Race | Unknown | + + + | Ethnic Group | Unknown | + + + Author + + + | Author | [facility] | | | and [place] | + + + | Organization | [facility] | | | and [place] [...] [place], [place] | | | | | [address] | | + + + + + Care Team Providers + +------+ + | Care Warehouse Handler Name | Role | Phone | + +------+ + | No, Physician | PCP | Unavailable | + +------+ + Encounter Details +--------+ + + + + | Date | Type | Department | Care Team | Description | +--------+ + + + + | 08// | Hospital | [facility] | Lana, Radu Armstrong, | | | 2013 | Encounter | [facility] | [address] | | | | | [address] | [place] | | | | | [place] | [address] | | | | | [address] | | | | | | [phone] | | | +--------+ + + + [...] + + documented as of this encounter Medications at Time of Discharge + + + +---------+ + + | Medication | Sig | Dispensed | Refills | Start | End Date | | | | | | Date | | + + + +---------+ + + | | Take 1 tablet by | 20 | 0 | 04/03/20 | | | amoxicillin-clavulan | mouth 2 times daily | tablet | | 14 | 4 | | ate (AUGMENTIN) | for 10 days. | | | | | | 875-125 mg per | | | | | | | [...] + +--------+ + + + | XR HAND RIGHT 3 + VW | Routin | 04/03/2014 | Injury of right | Results for this | | | e | 5:20 PM | hand, initial | procedure are in the | | | | PDT | encounter | results section. | + +--------+ + + + documented in this encounter Results XR Hand Right 3 + Vw (04/03/2014 5:20 PM PDT) + + | Specimen | + + | | + + + + + | Narrative | Performed At | + + + | XR HAND RIGHT 3 + VW. 04/03/2014 5:05 PM HISTORY: pain . | MISCELANIOUS | | COMPARISON: None available. FINDINGS: Joint spaces and | LAB | | alignment are maintained, without evidence of fracture or | | | dislocation. The overlying soft tissues are mildly prominent at the | | | dorsum of the hand, suggestive of soft tissue swelling. | | | IMPRESSION - No radiographic evidence of fracture or dislocation. | | | Possible soft tissue injury. Dictated and Signed by: Eliu | | | MD Светлана Electronically signed: 04/04/2014 8:02 AM | | + + + + + | Procedure Note | + + | Oumar, Rad Results In - 04/04/2014 8:05 AM PDT XR HAND RIGHT 3 + VW. 04/03/2014 5:05 | | PMHISTORY: pain . COMPARISON: None available.FINDINGS:Joint spaces and alignment are | | maintained, without evidence of fracture ordislocation. The overlying soft tissues are | | mildly prominent at the dorsum ofthe hand, suggestive of soft tissue swelling.IMPRESSION | | -No radiographic evidence of fracture or dislocation. Possible soft | | tissueinjury.Dictated and Signed by: Eliu Sotomayor MD Electronically signed: | | 04/04/2014 8:02 AM | |Joint spaces and alignment are maintained, without evidence of fracture or | |dislocation. The overlying soft tissues are mildly prominent at the dorsum of | |the hand, suggestive of soft tissue swelling. | | | | | |IMPRESSION - | |No radiographic evidence of fracture or dislocation. Possible soft tissue | |injury. | | | |Dictated and Signed by: Eliu Sotomayor MD | | Electronically signed: 04/04/2014 8:02 AM | + + + +---------+ + + | Performing | Address | City/State/Zipcode | Phone Number | | Organization | | | | + +---------+ + + | MISCELLANEOUS LAB | | | [phone] | + +---------+ + + | MISCELANIOUS LAB | | | [phone] | + +---------+ + + documented in this encounter Visit Diagnoses Not on filedocumented in this encounter"
--- OUTSIDE RECORDS SUMMARY | ~2020-02-17 | XMS | Encounter Summary ---
Demographics + + + | Address | [address] | | | [facility] [facility] [address] | + + + | Home Phone | | + + + | Preferred Language | Unknown | + + + | Marital Status | Single | + + + | Sikhism Affiliation | 1013 | + + + | Race | Unknown | + + + | Ethnic Group | Unknown | + + + Author + + + | Author | [facility] | | | and [place] | + + + | Organization | [facility] | | | and [place] [...] [place] | | | | | [address] | | + + + + + Care Team Providers + +------+ + | Care Advertising Sales Manager Name | Role | Phone | + [...] | | Gastroesopha | | [address], | | | | | geal reflux | | [address] | | | | | disease, | | [place], | | | | | esophagitis | | [place] [address] | | | | | presence not | | Phone: | | | | | specified | | [phone] | | | | | Gastritis, | | Fax: | | | | | presence of | | [phone] | | | | | bleeding | [...] | | | | | | | [place] | | | | | | | ESOPHAGOGAST | | | | | | | RODUODENOSCO | | | | | | | PY TRANSORAL | | | | | | | DIAGNOSTIC | | | | | | | [place] EGD | | | | | | | TRANSORAL | | | | | | | BIOPSY | | | | | | | SINGLE/MULTI | | | | | | | PLE [place] | | | | | | | [...] + + | 07/27/ | Surgery | [facility] | Ashok Estrada MD | EGD | | 2019 | | MED CTR MP INTRA OP | [address], [place] | | | | | [address] | [address] [place] | | | | | [place] | [address] | | | | | [address] | | | | | | [phone] | | | +--------+---------+ + + + [...] of blood in stool Date Last Reviewed: 09/18/201719999268-0979 [employer]. [address] [place] [address]. All righ ts reserved. This information is [...] Watch when you eat Avoid lying down [id number] after eating. Do not snack before going [...] and ibuprofen Stop smoking Date Last Reviewed: 02/16/201619991086-3914 [employer]. [address] [place] [address]. All righ ts reserved. This information is [...] 1. Available medical records have been reviewed. [facility] [place] emergency r oom department [...] Electronically Signed by: Ashok Estrada MD 07/27/2019 [facility] Portions of this chart may have been created with [employer] voice recognition software. Occasi onal wrong-word or [...] Endoscopy Patient: Lit Munoz : 1995 Acct: [id number] Exam Date: Saturday, July 27, 2019 Doctor: [...] If unable to reach your physician, call [facility] Emergency Department at Ext. [address] Your doctor [...] + +--------+ + + + | *TERMED* [place] UPPER GI | Routin | 07/27/2019 | [...] ST. | [address] | [place] | [phone] | | [facility] | | [address] | | | - LABORATORY | | | | + + + + + EGD (07/27/2019 1:31 PM PST) + + | Specimen | + + | | + + + + + | Narrative | Performed At | + + + | [facility] | [facility] | | [facility]ro[facility]ologyPatient Name: Lit Munoz | YECENIA | | RichardProcedure Date: 07/27/2019 1:31 PMMRN: [id number] | | | Number: [id number] of : 1995Note Status: | | | FinalizedAttending MD: Ashok Estrada , [facility]rocedure Type: | | | Upper GI endoscopyIndications: [...] the anesthesiologist and the | | | non morse intercept technician in the endoscopy suite. Mental Status [...] | | | was performed using the [employer] Intelligent Chromo Endoscopy | | | (FICE) [...] | | | PMNumber of Addenda: 0 [facility] | | | - Discharge patient [...] pathology results in 1 week. | | |Ashok Estrada MD | | |07/27/2019 2:12:49 PM | | |This report has been signed electronically. | | |Note Initiated On: 07/27/2019 1:31 PM | | |Number of Addenda: 0 | | | [facility] | | + + + + +---------+ + + | Performing | Address | City/State/[facility] | Phone Number | | Organization [...] contaminant from specimen | | | A. VR:[facility]:C2NR GROSS DESCRIPTION: Two specimens are received | [...] component was performed by | | | [address] [address] (Medical | | | Director: Maria Morrissey MD; CLIA# [id number]). Professional | | | interpretation was performed by [facility] | | | [address] | | | [address] (Registered Nurse Step Down: Micky Hollis M.D.). Diagnostician: | | | Micky Hollis MD Pathologist Electronically Signed 07/28/2019 | | | | | + + + + +---------+ + + | Performing | Address | City/State/[facility] | Phone Number | | Organization [...] One week or | | | longer, [id number] use of | | | at least [...]
--- OUTSIDE RECORDS SUMMARY | ~2020-02-17 | XMS | Encounter Summary ---
Demographics + + + | Address | [address] | | | [facility] [facility] [address] | + + + | Home Phone | | + + + | Preferred Language | Unknown | + + + | Marital Status | Single | + + + | Mandaen Affiliation | 1013 | + + + | Race | Unknown | + + + | Ethnic Group | Unknown | + + + Author + + + | Author | [facility] | | | and [place] | + + + | Organization | [facility] | | | and [place] [...] [place], [place] | | | | | [address] | | + + + + + Care Team Providers + +------+ + | Care Flotation Tender Name | Role | Phone | + +------+ + PCP | Unavailable | + +------+ + Encounter Details +--------+ + + + + | Date | Type | Department | Care Team | Description | +--------+ + + + + | 10/09/ | [facility] | MAURIZIO QUINTERO | Yumiko Kerns | | | 2001 | Encounter | [facility] [address] | | | | | | [place] | | | | | | [place] | | | | | | [address] | | | | | | [phone] | | | +--------+ + + + + Social History + +-------+ +--------+------+ | Tobacco Use | Types | Packs/Day | Years | Date | | | | | Used | | + +-------+ +--------+------+ | Never Assessed | | | | | + +-------+ +--------+------+ + + + | Sex Assigned at | Date Recorded | | | | + + + | Not on file | | + + + documented as of this encounter Plan of Treatment Not on filedocumented as of this encounter Visit Diagnoses Not on filedocumented in this encounter"
--- OUTSIDE RECORDS SUMMARY | ~2020-02-17 | XMS | Encounter Summary ---
Demographics + + + | Address | [address] | | | [facility] [address] | + + + | Home Phone | | + + + | Preferred Language | Unknown | + + + | Marital Status | Single | + + + | Pentecostalism Affiliation | 1013 | + + + | Race | Unknown | + + + | Ethnic Group | Unknown | + + + Author + + + | Author | [facility] | | | and [place] | + + + | Organization | [facility] | | | and [place] [...] [place] | | | | | [address] | | + + + + + Care Team Providers + +------+ + | Care Program Counselor Name | Role | Phone | + +------+ + | Ugo Schofield MD | PCP | | + +------+ + Reason for Visit + +--------+ + | Reason | Onset | Comments | | | Date | | + +--------+ + | Procedure | 06/17/ | egd/prop | | | 2019 | | + +--------+ + Encounter Details +--------+ + + + + | Date | Type | Department | Care Team | Description | +--------+ + + + + | 06/17/ | Telephone | [facility] [place] | Ashok Estrada MD | Procedure (egd/prop) | | 2019 | | GASTROENTEROLOGY | [address], [place] | | | | | [address] [place] | [address] [place], [place] | | | | | [address] [place], [place] | [address] | | | | | [address] | | | | | | [phone] | | | +--------+ + + + [...] this encounter Miscellaneous Notes Telephone Encounter - Travis, Radha, Certified Nursing Attendant - 06/17/2019 3:55 PM PDTScheduled p atient for egd/prop ( GERD; Gastritis; THC) with Dr. Estrada on 07/20/2019 with a check in rajendra e of 0800. Reviewed medication and allergies; Patient may have a light supper the night befo re procedure, will hold any reflux medication the morning of procedure; Nothing to drink 4 h ours prior to procedure; instructions mailed to pt; patient verbalized understanding. document ed in this encounter Plan of Treatment Not on filedocumented as of this encounter Visit Diagnoses + + | Diagnosis | + + | Gastroesophageal reflux disease, esophagitis presence not specified - Primary | + + | Gastritis, presence of bleeding unspecified, unspecified chronicity, unspecified | | gastritis type | + + | Cannabis use, uncomplicated Cannabis abuse, unspecified | + + documented in this encounter"
--- OUTSIDE RECORDS SUMMARY | ~2020-02-17 | XMS | Encounter Summary ---
Demographics + + + | Address | [address] | | | [facility] [address] | + + + | Home Phone | | + + + | Preferred Language | Unknown | + + + | Marital Status | Single | + + + | Jainism Affiliation | 1013 | + + + | Race | Unknown | + + + | Ethnic Group | Unknown | + + + Author + + + | Author | [facility] | | | and [place] | + + + | Organization | [facility] | | | and [place] [...] [place] | | | | | [address] | | + + + + + Care Team Providers + +------+ + | Care Fiscal Accounting Clerk Name | Role | Phone | + +------+ + | Ugo Schofield MD | PCP | | + +------+ + Reason for Visit + +--------+ + | Reason | Onset | Comments | | | Date | | + +--------+ + | Appointment | 07/19/ | r/s d egd | | | 2019 | | + +--------+ + Encounter Details +--------+ + + + + | Date | Type | Department | Care Team | Description | +--------+ + + + + | 07/19/ | Telephone | [facility] | Ashok Estrada MD | Appointment (r/s d | | 2018 | | GASTROENTEROLOGY | [address], [place] | egd) | | | | [address] [place] | [address] [place], [place] | | | | | [address] [place], [place] | [address] | | | | | [address] | | | | | | [phone] | | | +--------+ + + + [...] this encounter Miscellaneous Notes Telephone Encounter - Fazzari, Whitley M, RN - 07/19/2019 10:09 AM PSTSpoke with patient and rescheduled his upper endoscopy to next July 27 checking in at 11 AM. Alma william notified. Reviewed instructions. elephone Encounter - Whitley Hardy RN - 07/19/2019 10:03 AM PSTMessage left with optional dates to reschedule his upper endoscopy. Will give patient 1 more chance. elep shaye Encounter - Jesusita Christianson - 07/19/2019 9:50 AM PSTPatient called stating he loza d us Friday to cancel his procedure for today. I informed him that we did not receive any message from him but that his procedure is tomorrow with Dr. Estrada and inquired as to wheth er he would be able to make it tomorrow. He states 'It would be really hard for me since I am in [place] right now." Asked whether he lives there now as we have a [place] a ddress, he states he is not living there now but he is there currently as he has his son thi s week. Informed him that this is considered a late cancellation and I would have to let e clinical staff know that he is cancelling and they will need to advise on whether he can b e rescheduled or not. I also asked if he is wanting to reschedule he states that yes he is. Please call him back at [phone] signed by Jesusita Christianson at 9:55 AM PSTdocumented in this encounter Plan of Treatment Not on filedocumented as of this encounter Visit Diagnoses Not on filedocumented in this encounter
--- OUTSIDE RECORDS SUMMARY | ~2020-02-17 | XMS | Encounter Summary ---
Demographics + + + | Address | [address] | | | [facility] [address] | + + + | Home Phone | | + + + | Preferred Language | Unknown | + + + | Marital Status | Single | + + + | Presybeterian Affiliation | 1013 | + + + | Race | Unknown | + + + | Ethnic Group | Unknown | + + + Author + + + | Author | [facility] | | | and [place] | + + + | Organization | [facility] | | | and [...] [place] | | | | | [address] | | + + + + + Care Team Providers + +------+ + | Care Program Management Manager Name | Role | Phone | [...] | | | | | [place] | [facility] [place] | | | | | [address] | [address] | | | | | [phone] | | | +--------+ + + + [...] - 04/05/2014 11:43 AM PDTCalled patient per [facility] Follow up Guidelines. Asked patient [...]
--- OUTSIDE RECORDS SUMMARY | ~2020-02-17 | XMS | Encounter Summary ---
Demographics + + + | Address | [address] | | | [place] [facility] [address] | + + + | Home Phone | | + + + | Preferred Language | Unknown | + + + | Marital Status | Single | + + + | Christianity Affiliation | 1013 | + + + | Race | Unknown | + + + | Ethnic Group | Unknown | + + + Author + + + | Author | [facility] | | | and [place] | + + + | Organization | [facility] | | | and [place] | [...] [place] | | | | | [address] | | + + + + + Care Team Providers + +------+ + | Care Osha Inspector Name | Role | Phone | + [...] | Behavioral | Diagnoses | Morasch, | Javi Nagy | | | Services | Health | Depression, | Ugo Gardner MD | L, PMHNP | | | Required | | unspecified | [address] | [address] | | | | | depression | [address] | [address] | | | | | type | [place] | [place] | | | | | | [place], [place] | [place], [place] | | | | | | [address] | [address] Phone: | | | | | | Phone: | [phone] | | | | | | [phone] | Fax: | | | | | | Fax: | [phone] | | | | | | [phone] | | +--------+ + + + + + Reason for Visit + + + | Reason | Comments | + + + | Medication | | | Management | | + + + Encounter Details +--------+ + + + + | Date | Type | Department | Care Team | Description | +--------+ + + + + | 12/30/ | Virtual | [facility] | Ugo Schofield, | Gastroesophageal | | 2019 | Office | [facility] | [address] | reflux disease, | | | Visit | MEDIC[facility] [place] | [address] [place], | esophagitis presence | | | | [address] | [place] [address] | not specified | | | | [address] [place], | [phone] | (Primary Dx); | | | | [place] [address] | | Depression, | | | | [phone] | | unspecified | | | | | | depression type | +--------+ + + + + Social [...] + + documented as of this encounter Progress Ugo Granado MD - 12/31/2019 11:00 AM PDTFormatting of this note might be different f rom the original. Subjective: Patient ID: Lit Munoz is a 24 y.o. male. HPI Information below has been pulled from previous visit, reviewed and updated as appropriate. You have chosen to receive care through the use of telemedicine. Telemedicine enables [facility] care providers at different locations to provide safe, effective and convenient care throu gh the use of technology. As with any health care service, there are risks associated with t he use of telemedicine, including equipment failure, poor image resolution and information s ecurity issues. Do you understand the risks and benefits of telemedicine as I have explained them to you? " Yes" Have your questions regarding telemedicine been answered? "Yes" Patient is currently at home Do you consent to the use of telemedicine in your medical care today? Yes. Last question, I need to confirm where are you physically located right now? Answer: Patient confirms they are located in a state where I,Ugo Schofield MD am lice nsed. Subjective: [facility] Virtual: [id number] real-time secure synchronous vi nell visit. Patient acknowledged the Authorization to Treat and Notice of Privacy Practice prior to con nection. Provider location: [facility] Quality of connection: video and audio working Verification: location of patient at the time of visit: zoom Photo ID: on file : 1995 Primary care provider: Ugo Schofield MD He is staying in [facility], 3x per week since high school. Recent black stools a few days ago. Some recent vomitting with recent binge. He on omeprazole once a day. stromach gets "queezy a lot" Anxiety Disorder, Poor sleep, He has been medication for this in the past and and this ma de his feel weird. He trying to stop smoking marijuana. "I'm depressed" Denies HI or SI. He feels like he is not accomplishing things and he does not really get along with his real family. He just ignores them. He is estranged from his biologic brothers and dad who live in [facility]. He has been doing more drinking lately. He got in trouble on his birthday. He is having to court. Adopted mom lives in [place] PMH: Anxiety GERD PSH: none Fhx: Adopted Dad biologic [facility], healthy Mom biologic brain aneurysm 30's , Bipolar and Depression. Shx: Born in [facility] since 2019 Single, 2 kids. [employer]. Non smoker 15 drinks per week. Marijuana, [...] for suicidal ideas,no confusion and no agitation. Some Depression, some anxiety,no sleep problems Objective: There were no vitals taken for this visit. Physical Exam NAD Assessment: 1. Gastroesophageal reflux disease, esophagitis presence not specified 2. Depression, unspecified depression type sertraline (ZOLOFT) 50 mg tablet Behavioral Health, External - AMB Referral DISCONTINUED: sertraline (ZOLOFT) 50 mg tablet Plan: He is depressed. Less likely Bipolar 2, Doubt bipolar one, Refer to Behavioral healt h, I congratulated him on stopping drinking. He is going to try to stop smoking Pot which I commended. Lexapro trial, I would like to see him for a real visit in 3 weeks. I sarmad l have [employer] reach out to him to assist him in finding insurance. He will read on Bipolar 2 vs depression and we will discuss this next time. Electronicall y signed by Ugo Schofield MD at 12/31/2019 11:56 AM PDTdocumented in this encounter Plan of Treatment + + +--------+ + + | Name | Type | Priori | Associated Diagnoses | Order Schedule | | | | ty | | | + + +--------+ + + | Behavioral Health, | Outpatient | Routin | Depression, | Ordered: 12/31/2019 | | External - AMB | Referral | e | unspecified | | | Referral | | | depression type | | + + +--------+ + + documented as of this encounter Visit Diagnoses + + | Diagnosis | + + | Gastroesophageal reflux disease, esophagitis presence not specified - Primary | + + | Depression, unspecified depression type | + + documented in this encounter
--- OUTSIDE RECORDS SUMMARY | ~2020-02-17 | XMS | Encounter Summary ---
Demographics + + + | Address | [address] | | | [place] [address] | + + + | Home Phone | | + + + | Preferred Language | Unknown | + + + | Marital Status | Single | + + + | Gnosticism Affiliation | 1013 | + + + | Race | Unknown | + + + | Ethnic Group | Unknown | + + + Author + + + | Author | [facility] | | | and [place] | + + + | Organization | [facility] | | | and [...] [place] | | | | | [address] | | + + + + + Care Team Providers + +------+ + | Care Senior Procurement Manager Name | Role | Phone | [...] + + | 07/30/ | Telephone | [facility] | Ashok Estrada MD | Results, Pathology | | 2019 | | GASTROENTEROLOGY | [address], [place] | (egd) | | | | [address] [place] | [address] [place], [place] | | | | | [address] [place], [place] | [id number] | | | | | [address] | | | | | | [phone] | | | +--------+ + + + [...]
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
--- OUTSIDE RECORDS SUMMARY | ~2020-02-17 | XMS | Encounter Summary ---
Demographics + + + | Address | [address] | | | [place] [address] | + + + | Home Phone | | + + + | Preferred Language | Unknown | + + + | Marital Status | Single | + + + | Baptist Affiliation | 1013 | + + + | Race | Unknown | + + + | Ethnic Group | Unknown | + + + Author + + + | Author | [facility] | | | and [place] | + + + | Organization | [facility] | | | and [place] | + + + | Address | Unknown | + + + | Phone | Unavailable | + + + Support + + + + + | Name | Relationship | Address | Phone | + + + + + | Heiyd Yao | ECON | [address] | | | | | [place], [place] | | | | | [address] | | + + + + + Care Team Providers + +------+ + | Care Endocrinology Teacher Name | Role | Phone | + [...] + + | 05/03/ | Emergency | [facility] | Franklyn Arroyo | Epigastric pain | | 2019 | | [facility] | DO [address] | (Primary Dx) | | | | CENTER [address] | [facility] | | | | | [place] | [place] [address] | | | | | [address] | [phone] | | | | | [phone] | | | +--------+ + + + [...] be sent through Care Everywhere.Gastritis (Adul t) (Swedish)documented in this encounter Medications at Time of [...] might be differ ent from the original. [facility] Lit Munoz Emergency Department Encounter Note [address] [place] [id number] PCP:No Physician on file [phone] History ED [...] No past surgical history on file. Medications: DRUM CLEANER Home Medications Medication Sig raNITIdine (RANITIDINE 150 [...] ED Course and Medical Decision Making Lit Mnuoz presented to the Emergency Department for evaluation, [...] ST. | [address] | [place], [place] | [phone] | | [facility] | | [address] | | | - LABORATORY | | [...] ST. | [address] | [place], [place] | [phone] | | [facility] | | [address] | | | - LABORATORY | | [...] use as of October 14 | | [facility] | | | | 2018. Check reference [...] + | [facility] | [address] | [place] | [phone] | | [facility] | | [address] | | | - LABORATORY | | [...] mL/min/1.73m2 | [facility] | | | [place] | RATE,ESTIMATED | | MEDICAL | | | | mL/min/1.05n9Ogou than | | CENTER - | | [...] [address] | [place] | [phone] | | [facility] | | [address] | | | - LABORATORY | | [...] [address] | [place] | [phone] | | [facility] | | [address] | | | - LABORATORY | | [...]
--- OUTSIDE RECORDS SUMMARY | ~2020-02-17 | XMS | Clinical Summary ---
Demographics + + + | Address | [address] | | | [place] [address] | + + + | Home Phone | | + + + | Preferred Language | Unknown | + + + | Marital Status | Single | + + + | Gnosticism Affiliation | 1013 | + + + | Race | Unknown | + + + | Ethnic Group | Unknown | + + + Author + + + | Author | [facility] | | | and [place] | + + + | Organization | [facility] | | | and [...] [place] | | | | | [address] | | + + + + + Care Team Providers + +------+ + | Care Fixing Carpenter Name | Role | Phone | + [...] automatically from request for surgery | | [id number] | + + + +---+ | GERD [...] automatically from request for surgery | | [id number] | + + + + + + | Cannabis use, uncomplicated | 07/05/20 | | | | 19 | 9 | + + + + + + | Overview: Added automatically from request for surgery | | [id number] | + + Encounters +--------+ + + [...] | [employer] | [employer] | [id number] | 11/17/19 | | | Medica | [...] | | 1994 | [phone] | [place] [facility] [place] | | | robin | | | [address] ([place]) | [address] | + +--------+ +--------+ + + Advance Directives + + + + + | Type | Date Recorded | Patient | Explanation | | | | Blasting Gang Miner | | + + + + + | Power of | | | | | Data Technical Lead | | | | + + + + + | Advance | 07/27/2019 | | | | Directive | 10:53 AM | | | + + + + +
--- OUTSIDE RECORDS SUMMARY | ~2020-02-17 | XMS | Encounter Summary ---
Demographics + + + | Address | [address] | | | [place] [address] | + + + | Home Phone | | + + + | Preferred Language | Unknown | + + + | Marital Status | Single | + + + | Buddhist Affiliation | 1013 | + + + | Race | Unknown | + + + | Ethnic Group | Unknown | + + + Author + + + | Author | [facility] | | | and [place] | + + + | Organization | [facility] | | | and [place] | [...] [place] | | | | | [address] | | + + + + + Care Team Providers + +------+ + | Care Chiller Technician Name | Role | Phone | [...] | | Gastroesopha | | [address], | | | | | geal reflux | | [address] | | | | | disease, | | [place], | | | | | esophagitis | | [place] [address] | | | | | presence not | | Phone: | | | | | specified | | [phone] | | | | | Gastritis, | | Fax: | | | | | presence of | | [phone] | | | | | bleeding | [...] | | | | | | | [place] | | | | | | | ESOPHAGOGAST | | | | | | | RODUODENOSCO | | | | | | | PY TRANSORAL | | | | | | | DIAGNOSTIC | | | | | | | [place] EGD | | | | | | | TRANSORAL | | | | | | | BIOPSY | | | | | | | SINGLE/MULTI | | | | | | | PLE [place] | | | | | | | [...] + + | 07/27/ | Hospital | [facility] | Ashok Estrada MD | Gastroesophageal | | 2019 | Encounter | MED CTR [facility] INTRA OP | [address], [place] | reflux disease, | | | | [address] | [address] [place] | esophagitis presence | | | | [place], [place] | [address] | not specified; | | | | [address] | | Gastritis, presence | | | | [phone] | | of bleeding | | | [...] of blood in stool Date Last Reviewed: 09/18/201719994237-9941 [employer] [address] [place] [address], [place] [address]. All righ ts reserved. This information is [...] Watch when you eat Avoid lying down [id number] after eating. Do not snack before going [...] and ibuprofen Stop smoking Date Last Reviewed: 02/16/201619993840-7185 [employer] [address] [place] [address], [place] [address]. All righ ts reserved. This information is [...] 1. Available medical records have been reviewed. [facility] family medicine 05/20/2019 emergency r oom department [...] Electronically Signed by: Ashok Estrada MD 07/27/2019 [facility] Portions of this chart may have been created with [employer] voice recognition software. Occasi onal wrong-word or [...] Endoscopy Patient: Lit Munoz : 1995 Acct: [id number] Exam Date: Saturday, July 27, 2019 Doctor: [...] If unable to reach your physician, call [facility] Emergency Department at Ext. 2500 Your [...] + +--------+ + + + | *TERMED* [place] UPPER GI | Routin | 07/27/2019 | [...] ST. | [address] | [place], [place] | [phone] | | [facility] | | [address] | | | - LABORATORY | | | | + + + + + EGD (07/27/2019 1:31 PM PST) + + | Specimen | + + | | + + + + + | Narrative | Performed At | + + + | [facility] | [facility] | | [facility]ologyPatient Name: Lit Munoz | YECENIA | | RichardProcedure Date: 07/27/2019 1:31 PMMRN: [id number] | | | Number: [id number] of : 1995Note Status: | | | [...] the anesthesiologist and the | | | senior maintenance technician in the endoscopy suite. Mental Status [...] | | | was performed using the [employer] End[employer] | | | (FICE) [...] | | | PMNumber of Addenda: 0 [facility] | | | - Discharge patient [...] |Number of Addenda: 0 | | | [facility] | | + + + + [...] contaminant from specimen | | | A. JVR:[facility]:C2NR GROSS DESCRIPTION: Two specimens are received [...] component was performed by | | | [facility] [address] (Medical | | | Director: Maria Morrissey MD; IA# [id number]). Professional | | | interpretation was performed by [facility] | | | [address] | | | [address] (Behavioral Health Clinician: Micky Hollis M.D.). Diagnostician: | | | [...] One week or | | | longer, [id number] use of | | | at least [...]
[~2020-02-17 13:07] MED LIST changes: +ZOLOFT100 MG PO
--- OUTSIDE RECORDS SUMMARY | 2020-02-17 13:12 | XMS ---
PreManage Notification: MEL UNDEROWOD Security Commercial Pilot Events No recent Security Events currently on file CRITERIA MET - [facility] - 2 Visits in 30 Days CARE PROVIDERS DHARMESH LOPEZ Physician Dial Buffer Current PHONE: [phone] KAHLIL [facility] Current PHONE: [phone] William has no Care Guidelines for this patient. Edwina VISIT COUNT (12 MO.) 1 [facility] [address] [place] [address] TOTAL 3 NOTE: Visits indicate total known visits. ED/UCC VISIT TRACKING (12 MO.) 02/17/2020 13:08 [place] [place] TYPE: Emergency COMPLAINT: - VOMITING BLOOD 02/12/2020 21:49 [place] TYPE: Emergency COMPLAINT: - CUT WRIST DIAGNOSES: - Major depressive disorder, single episode, unspecified - Suicide attempt, initial encounter - Other termite treater helper (current) drug therapy 05/03/2019 19:20 [facility] DIAGNOSES: - emesis abd pain - Epigastric pain - Abdominal Pain - Emesis INPATIENT VISIT TRACKING (12 MO.) No inpatient visits to display in this time frame [email or web address]
[2020-02-17] MEDS ORDERED: PRILOSEC OTC20 MG PO (15:27)
[2020-02-17] MEDS ORDERED: ZOFRAN4 MG PO (15:27)
== END 2020-02-17 15:36 | disposition home or self-care (01) ==
LOC: ED 13:07
DX: R10.13 Epigastric pain (principal); R11.10 Vomiting, unspecified; F10.10 Alcohol abuse, uncomplicated; F12.90 Cannabis use, unspecified, uncomplicated; Y90.7 Blood alcohol level of 200-239 mg/100 ml
CPT/HCPCS: 71045; 80053; 83690; 85025; 86850; 86900; 86901; 96374; 96375; 99284-25; G0480; J1630; J7030